=== PATIENT | female | born 1940 | race Caucasian/White ===

== ENCOUNTER 2016-06-21 23:04 | Inpatient (IN) | payer OTHER, MEDICARE ==
[~2016-06-21] VITALS: Ht 162.6 cm; Wt 51.7 kg
--- NOTE | 2016-06-21 23:13 | ED MVC/FALL/TRAUMA COMPLAINT ---
History of Present Illness General Chief Complaint: Lower Extremity Injury Stated Complaint: S/P FALL, ANTERIOR THIGH AND ANKLE AREA PAIN Source: patient, EMS Exam Limitations: dementia, poor historian Vital Signs & Intake/Output Vital Signs & Intake/Output Vital Signs Date Time Temp Pulse Resp B/P Pulse O2 O2 Flow FiO2 Ox Delivery Rate 06/24 2248 99.9 86 20 112/58 99 Room Air 06/24 1600 Nasal 2.0L Cannula 06/24 1501 98.2 85 19 140/80 96 06/24 1051 85 138/68 06/24 1050 85 138/68 06/24 0655 98.8 86 18 144/70 96 Nasal Cannula ED Intake and Output 06/25 0000 06/24 1200 Intake Total 500 100 Output Total 320 150 Balance 180 -50 Intake, Oral 500 100 Number 0 Bowel Movements Output, Urine 320 150 Patient 114 lb Weight Allergies Coded Allergies: lisinopril (Mild, UNKNOWN 06/21/16) Reconcile Medications Alendronate Sodium 70 MG TABLET 70 MG PO QW BONE STRENGTH (Reported) Amlodipine Besylate 10 MG TABLET 10 MG PO DAILY HIGH BLOOD PRESSURE (Reported ) Donepezil HCl 5 MG TABLET 5 MG PO DAILY DEPRESSION (Reported) Escitalopram Oxalate (Lexapro) 10 MG TABLET 15 MG PO DAILY DEPRESSION ( Reported) Famotidine (Pepcid) 20 MG TABLET 20 MG PO DAILY STOMACH HEALTH (Reported) Fluticasone/Salmeterol (Advair 250-50 Diskus) 250 MCG-50 MCG/DOSE BLST.W.DEV 2 PUF INH BID SHORTNESS OF BREATH (Reported) Levetiracetam (Keppra) 500 MG TABLET 500 MG PO BID SEIZURES (Reported) Metoprolol Tartrate 25 MG TABLET 12.5 MG PO BID HIGH BLOOD PRESSURE (Reported ) Phenytoin (Dilantin) 100 MG CAPSULE 130 MG PO AT BEDTIME SEIZURES (Reported) Phenytoin (Dilantin) 100 MG CAPSULE 1 CAP PO DAILY SEIZURES (Reported) Polyethylene Glycol 3350 (Miralax) 17 GRAM POWD.PACK 1 PAC PO DAILY PRN CONSTIPATION (Reported) dissolve in water Sennosides (Senna) 8.6 MG TABLET 8.6 MG PO DAILY STOOL SOFTENER (Reported) Travoprost (Travatan Z) 0.004 % DROPS 1 DROP OU DAILY EYE PROBLEMS (Reported) Trazodone HCl 50 MG TABLET 0.5 TAB PO Q6P PRN AGITATION (Reported) Umeclidinium [place] (Incruse Ellipta) 62.5 MCG/ACTUATION BLST.W.DEV 1 PUFF INH DAILY LUNG (Reported) Triage Nurses Notes Reviewed? yes HPI: Patient is a 75-year-old female brought in by ambulance for evaluation of fall. Patient resides in a senior care facility, was in the hallway and fell in front of the nursing station. EMS was not able to say if the fall was witnessed or not. Patient is severely demented, is unable to provide any history. Patient does not remember falling, being on the floor, or EMS transporting her to the hospital. Patient reports pain is 0 out of 10 right now. When asked to move her right lower extremity patient reports that it is painful. Patient denies headache, chest pain, abdominal pain, neck pain, back pain. (IBAN PETERSON) Past History Travel History Traveled to Thu past 21 day No Medical History Any Pertinent Medical History? see below for history Neurological: dementia, epilepsy Cardiovascular: hypertension Respiratory: COPD Surgical History Surgical History: non-contributory Psychosocial History Tobacco Use: Cognitive Impairment Family History Hx Contributory? No (IBAN PETERSON) Review of Systems Review of Systems Constitutional: Reports: no symptoms. Eyes: Denies: blurred vision. Ears, Nose, Throat, Mouth: Reports: no symptoms. Respiratory: Reports: no symptoms. Cardiovascular: Reports: no symptoms. Gastrointestinal/Abdominal: Reports: no symptoms. Genitourinary: Reports: no symptoms. Musculoskeletal: Reports: see HPI. Skin: Reports: no symptoms. Neurological/Psychological: Reports: dementia. (IBAN PETERSON) Physical Exam Physical Exam General Appearance: alert, awake Head: atraumatic, normal appearance Eyes: Bilateral: normal appearance, PERRL, EOMI. Ears, Nose, Throat, Mouth: hearing grossly normal, moist mucous membrane Neck: normal inspection, supple, full range of motion, no midline tenderness Respiratory: normal breath sounds, no respiratory distress, lungs clear Cardiovascular: regular rate/rhythm Peripheral Pulses: 2+ dorsalis pedis (R), 2+ dorsalis pedis (L) Gastrointestinal: soft, non-tender Back: normal inspection, normal range of motion, no vertebral tenderness Extremities: right lower extremity shortened and rotated. Tenderness right lateral hip. Severe pain with attempt at hip flexion both passive and active. Neurologic/Psych: awake, alert, disoriented to place and time Skin: warm/dry Core Measures ACS in differential dx? No Severe Sepsis Present: No Septic Shock Present: No (ZULEYMA HURLEY,IBAN) Progress Differential Diagnosis: aoritic dissection, abd injury, C/T/L spine injury, ext injury, ICH, pelvis injury, pnemothorax, spinal cord injury Plan of Care: Orders Procedure Date/time Status PROTHROMBIN TIME 06/25 06 Active CBC WITHOUT DIFFERENTIAL 06/25 06 Active BASIC ELECTROLYTES PLUS BUN&CR 06/25 06 Active URINALYSIS 06/24 1110 Complete Therapeutic Activities 06/24 UNK Complete PT EVAL LOW COMPLEX 20 MIN 06/24 UNK Complete Neuromuscular Re-ed 06/24 UNK Complete House Staff 06/24 UNK Active Anticipated Discharge 06/24 UNK Active MISSING MEDICATION FORM 06/24 UNK Active OXYGEN 06/23 UNK Complete OXYGEN DAILY CHARGE 06/23 UNK Complete Current Medications Sig/Marquis Start time Last Medication Dose Stop Time Status Admin Alendronate Sodium 70 MG QTHURS 06/25 1000 AC (Fosamax) Pantoprazole Sodium 40 MG DAILY 06/25 1000 AC (Protonix) Warfarin Sodium 2 MG COUMADIN 1700 ONE 06/24 1700 CAN (Coumadin) 06/24 1701 Acetaminophen 650 MG Q6P PRN 06/22 0200 AC (Tylenol) Laboratory Tests 06/24/16 1140: Urinalysis LIGHT H, Urine Color YEL, Urine Clarity CLEAR, Urine pH 6.0, Ur Specific [place] 1.025, Urine Protein 30 H, Urine Ketones 15 H, Urine Nitrite NEG, Urine Bilirubin NEG, Urine Urobilinogen 0.2, Ur Leukocyte Esterase NEG, Ur Microscopic SEDIMENT EXAMINED, Urine RBC 3-5, Urine WBC 5-10 H, Ur Epithelial Cells FEW, Urine Bacteria RARE H, Urine Mucus FEW, Urine Hemoglobin TRACE- INTACT, Urine Glucose NEG 06/24/16 0730: PT 33.2 H, INR 3.20 H 06/24/16 0700: Anion Gap 6, Estimated GFR > 60, BUN/Creatinine Ratio 20.0, CBC w Diff NO MAN DIFF REQ, RBC 3.48 L, MCV 92.8, MCH 30.1, RDW 13.6, MPV 9.4, Gran % 72.0, Lymphocytes % 15.8 L, Monocytes % 9.3, Eosinophils % 2.4, Basophils % 0.5, Absolute Granulocytes 7.8 H, Absolute Lymphocytes 1.7, Absolute Monocytes 1.0 H, Absolute Eosinophils 0.3, Absolute Basophils 0, PUBS MCHC 32.5 L Microbiology 06/24 1110 URINE ROUT: Urine Culture - CAN Cancelled: Cancelled via OE: Per MD Decision Patient declined pain medication on initial exam. 2354: Discussed with patient's niece Giovany and nephew Toñito Pappas. Orthopedics paged. 06/22/2016 12:22:35 AM: Discussed with Dr. Medina, Surgical PA Tejal. Discussed with Dr. Fox: will admit patient. (ZULEYMA HURLEY,IBAN) Diagnostic Imaging: Viewed by Me: Radiology Read, CT Scan. Discussed w/RAD: Radiology Read, CT Scan. Radiology Impression: PATIENT: REBECCA CARDENAS PRESENT AGE: 75 PATIENT ACCOUNT NO: [id number] : 39 LOCATION: [facility] ORDERING PHYSICIAN: IBAN HURLEY SERVICE DATE: 06/21/16 EXAM TYPE: RAD - XRY-HIP 2-3 VIEWS, RIGHT EXAMINATION: XR HIP, RIGHT CLINICAL INFORMATION: Fall. Right hip tenderness. Foreshortening right lower extremity. COMPARISON: No relevant prior imaging available. TECHNIQUE: Two views of the right hip. FINDINGS: There is an acute comminuted intertrochanteric fracture of the right hip with slight varus and posterior angulation at the site of the fracture. Chronic appearing fractures of the right superior and inferior pubic rami are also noted. Heavily calcified atheromatous plaque involves the visualized portions of the abdominal aorta and iliac vessels. Bowel gas pattern is unremarkable. IMPRESSION: There is an acute comminuted intertrochanteric fracture of the right hip with slight varus and posterior angulation at the site of fracture. DICTATED BY: ALEX YOUNG MD DATE/TIME DICTATED:06/22/1616 MIDDLEWARE ENGINEER:CHRISTIANA DATE/TIME TRANSCRIBED:06/22/1616 CONFIDENTIAL, DO NOT COPY WITHOUT APPROPRIATE AUTHORIZATION. <Electronically signed in Other Vendor System> SIGNED BY: ALEX YOUNG MD 06/22/16 0022, PATIENT: REBECCA CARDENAS PRESENT AGE: 75 PATIENT ACCOUNT NO: [id number] : 39 LOCATION: [facility] ORDERING PHYSICIAN: IBAN HURLEY SERVICE DATE: 06/21/16 EXAM TYPE: CAT - CT HEAD WO IV CONTRAST EXAMINATION: CT HEAD WITHOUT CONTRAST CLINICAL INFORMATION: Fall. Dementia. Evaluate for intracranial hemorrhage. COMPARISON: No relevant prior imaging available. TECHNIQUE: Contiguous axial imaging was performed from the skull base to vertex without intravenous administration of contrast. 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 Humphreys-white matter differentiation is otherwise preserved and there is no evidence of acute territorial infarct. There is no acute intracranial hemorrhage or abnormal extra axial collection. No intracranial mass effect or midline shift. Lateral and third ventricles are prominent and there is proportionate prominence of the subarachnoid spaces reflecting a mild degree of global parenchymal line loss. The calvarium and skull base are intact. Mastoid air cells and middle ear cavities are well aerated. Paranasal sinuses are well- aerated. 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 Mild global parenchymal loss. No evidence of acute cranial hemorrhage. DICTATED BY: ALEX YOUNG MD DATE/TIME DICTATED:2346 MIDDLEWARE ENGINEER:CHRISTIANA DATE/TIME TRANSCRIBED:06/21/162346 CONFIDENTIAL, DO NOT COPY WITHOUT APPROPRIATE AUTHORIZATION. <Electronically signed in Other Vendor System> SIGNED BY: ALEX YOUNG MD 06/21/16 8706 CXR Impression: PATIENT: REBECCA CARDENAS PRESENT AGE : 75 PATIENT ACCOUNT NO: [id number] : 39 LOCATION: [facility] ORDERING PHYSICIAN: IBAN HURLEY SERVICE DATE: 06/21/16 EXAM TYPE: RAD - XRY-CHEST XRAY, ONE VIEW ONLY EXAMINATION:\H\ \N\XR CHEST CLINICAL INFORMATION: Unwitnessed fall. COMPARISON: No relevant prior imaging available. TECHNIQUE: Semiupright AP view of the chest was obtained. FINDINGS: There are coarse reticular markings involving both lungs that most likely represent a manifestation of subsegmental atelectasis or scar. An ill-defined opacity within the right lower lobe may represent a manifestation of consolidative disease or subsegmental atelectasis. There is no pleural effusion. No pneumothorax. The cardiac silhouette and upper mediastinal contours are unremarkable. No acute osseous finding. IMPRESSION: Ill-defined opacity within the right lower lobe may represent a manifestation of subsegmental atelectasis or consolidative disease. DICTATED BY: ALEX YOUNG MD DATE/TIME DICTATED:06/22/1621 MIDDLEWARE ENGINEER:CHRISTIANA DATE/TIME TRANSCRIBED:06/22/1621 CONFIDENTIAL, DO NOT COPY WITHOUT APPROPRIATE AUTHORIZATION. <Electronically signed in Other Vendor System> SIGNED BY: ALEX YOUNG MD 06/22/1625 Initial ED EKG: normal sinus rhythm at 79 bpm normal axis, normal intervals, nonspecific ST/T-wave abnormalities. No previous EKG for comparison (IBAN PETERSON) Departure Departure Disposition: STILL A PATIENT Condition: Stable Clinical Impression Primary Impression: Fracture of right hip Qualifiers: Encounter type: initial encounter Fracture type: closed Qualified Code: S72.001A - Fracture of unspecified part of neck of right femur, initial encounter for closed fracture Departure Forms: Customer Survey General Discharge Information Admission Note Spoke With: KRISTY FOX MD Documentation of Exam: Documentation of any treatments & extenuating circumstances including Concerns Regarding Discharge (functional status, medication knowledge or non-compliance, living conditions, etc.) that warrant an admission rather than observation: ORTHO CONSULTATION, MEDICAL CLEARANCE, OR INTERVENTION (IBAN PETERSON) PA/FACULTY I ON CALL MEDICAL ASSISTANT Co-Sign Statement Statement: ED Attending supervision documentation- [] I saw and evaluated the patient. I have also reviewed all the pertinent lab results and diagnostic results. I agree with the findings and the plan of care as documented in the PA's/FACULTY I ON CALL MEDICAL ASSISTANT's documentation. [x] I have reviewed the ED Record and agree with the PA's/FACULTY I ON CALL MEDICAL ASSISTANT's documentation. [] Additions or exceptions (if any) to the PAs/FACULTY I ON CALL MEDICAL ASSISTANT's note and plan are summarized below: [] (AJ RUSSELL,MAGI Olguin) (IBAN PETERSON) Diagnostic Imaging: Viewed by Me: Radiology Read, CT Scan. Discussed w/RAD: Radiology Read, CT Scan. Radiology Impression: PATIENT: REBECCA CARDENAS PRESENT AGE: 75 PATIENT ACCOUNT NO: [id number] : 39 LOCATION: [facility] ORDERING PHYSICIAN: IBAN HURLEY SERVICE DATE: 06/21/16 EXAM TYPE: RAD - XRY-HIP 2-3 VIEWS, RIGHT EXAMINATION: XR HIP, RIGHT CLINICAL INFORMATION: Fall. Right hip tenderness. Foreshortening right lower extremity. COMPARISON: No relevant prior imaging available. TECHNIQUE: Two views of the right hip. FINDINGS: There is an acute comminuted intertrochanteric fracture of the right hip with slight varus and posterior angulation at the site of the fracture. Chronic appearing fractures of the right superior and inferior pubic rami are also noted. Heavily calcified atheromatous plaque involves the visualized portions of the abdominal aorta and iliac vessels. Bowel gas pattern is unremarkable. IMPRESSION: There is an acute comminuted intertrochanteric fracture of the right hip with slight varus and posterior angulation at the site of fracture. DICTATED BY: ALEX YOUNG MD DATE/TIME DICTATED:06/22/1616 MIDDLEWARE ENGINEER:CHRISTIANA DATE/TIME TRANSCRIBED:06/22/1616 CONFIDENTIAL, DO NOT COPY WITHOUT APPROPRIATE AUTHORIZATION. <Electronically signed in Other Vendor System> SIGNED BY: ALEX YOUNG MD 06/22/16 0022, PATIENT: REBECCA CARDENAS PRESENT AGE: 75 PATIENT ACCOUNT NO: [id number] : 39 LOCATION: [facility] ORDERING PHYSICIAN: IBAN HURLEY SERVICE DATE: 06/21/16 EXAM TYPE: CAT - CT HEAD WO IV CONTRAST EXAMINATION: CT HEAD WITHOUT CONTRAST CLINICAL INFORMATION: Fall. Dementia. Evaluate for intracranial hemorrhage. COMPARISON: No relevant prior imaging available. TECHNIQUE: Contiguous axial imaging was performed from the skull base to vertex without intravenous administration of contrast. 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 Humphreys-white matter differentiation is otherwise preserved and there is no evidence of acute territorial infarct. There is no acute intracranial hemorrhage or abnormal extra axial collection. No intracranial mass effect or midline shift. Lateral and third ventricles are prominent and there is proportionate prominence of the subarachnoid spaces reflecting a mild degree of global parenchymal line loss. The calvarium and skull base are intact. Mastoid air cells and middle ear cavities are well aerated. Paranasal sinuses are well- aerated. 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 Mild global parenchymal loss. No evidence of acute cranial hemorrhage. DICTATED BY: ALEX YOUNG MD DATE/TIME DICTATED:2346 MIDDLEWARE ENGINEER:CHRISTIANA DATE/TIME TRANSCRIBED:06/21/162346 CONFIDENTIAL, DO NOT COPY WITHOUT APPROPRIATE AUTHORIZATION. <Electronically signed in Other Vendor System> SIGNED BY: ALEX YOUNG MD 06/21/162351 CXR Impression: PATIENT: REBECCA CARDENAS PRESENT AGE : 75 PATIENT ACCOUNT NO: [id number] : 39 LOCATION: [facility] ORDERING PHYSICIAN: IBAN HURLEY SERVICE DATE: 06/21/16 EXAM TYPE: RAD - XRY-CHEST XRAY, ONE VIEW ONLY EXAMINATION:\H\ \N\XR CHEST CLINICAL INFORMATION: Unwitnessed fall. COMPARISON: No relevant prior imaging available. TECHNIQUE: Semiupright AP view of the chest was obtained. FINDINGS: There are coarse reticular markings involving both lungs that most likely represent a manifestation of subsegmental atelectasis or scar. An ill-defined opacity within the right lower lobe may represent a manifestation of consolidative disease or subsegmental atelectasis. There is no pleural effusion. No pneumothorax. The cardiac silhouette and upper mediastinal contours are unremarkable. No acute osseous finding. IMPRESSION: Ill-defined opacity within the right lower lobe may represent a manifestation of subsegmental atelectasis or consolidative disease. DICTATED BY: ALEX YOUNG MD DATE/TIME DICTATED:06/22/1621 MIDDLEWARE ENGINEER:BANGURA DATE/TIME TRANSCRIBED:06/22/1621 CONFIDENTIAL, DO NOT COPY WITHOUT APPROPRIATE AUTHORIZATION. <Electronically signed in Other Vendor System> SIGNED BY: ALEX YOUNG MD 06/22/16 0026 Initial ED EKG: normal sinus rhythm at 79 bpm normal axis, normal intervals, nonspecific ST/T-wave abnormalities. No previous EKG for comparison Departure Departure Disposition: STILL A PATIENT Condition: Stable Clinical Impression Primary Impression: Fracture of right hip Qualifiers: Encounter type: initial encounter Fracture type: closed Qualified Code: S72.001A - Fracture of unspecified part of neck of right femur, initial encounter for closed fracture Departure Forms: Customer Survey General Discharge Information Admission Note Spoke With: KRISTY FOX MD Documentation of Exam: Documentation of any treatments & extenuating circumstances including Concerns Regarding Discharge (functional status, medication knowledge or non-compliance, living conditions, etc.) that warrant an admission rather than observation: ORTHO CONSULTATION, MEDICAL CLEARANCE, OR INTERVENTION
--- NOTE | 2016-06-21 23:20 | NUR ---
RECEIVED 75 YO FEMALE BIBA FROM [facility] S/P FALL IN FRONT OF THE NURSES STATION. PT C/O ANTERIOR THIGH AREA PAIN AND ANKLE AREA PAIN. ACCORDING TO REPORT, PT DID NOT HIT HEAD. RIGHT LEG SHORTER THAN THE LEFT LEG. NATE HURLEY IN TO EVALUATE PT UPON ARRIVAL.
--- NOTE | 2016-06-21 23:28 | NUR ---
PT TO CT SCAN
--- NOTE | 2016-06-21 23:52 | CT SCAN REPORT ---
EXAMINATION: CT HEAD WITHOUT CONTRAST CLINICAL INFORMATION: Fall. Dementia. Evaluate for intracranial hemorrhage. COMPARISON: No relevant prior imaging available. TECHNIQUE: Contiguous axial imaging was performed from the skull base to vertex without intravenous administration of contrast. 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 Humphreys-white matter differentiation is otherwise preserved and there is no evidence of acute territorial infarct. There is no acute intracranial hemorrhage or abnormal extra axial collection. No intracranial mass effect or midline shift. Lateral and third ventricles are prominent and there is proportionate prominence of the subarachnoid spaces reflecting a mild degree of global parenchymal line loss. The calvarium and skull base are intact. Mastoid air cells and middle ear cavities are well aerated. Paranasal sinuses are well-aerated. 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 Mild global parenchymal loss. No evidence of acute cranial hemorrhage.
--- NOTE | 2016-06-22 00:22 | RADIOLOGY REPORT ---
EXAMINATION: XR HIP, RIGHT CLINICAL INFORMATION: Fall. Right hip tenderness. Foreshortening right lower extremity. COMPARISON: No relevant prior imaging available. TECHNIQUE: Two views of the right hip. FINDINGS: There is an acute comminuted intertrochanteric fracture of the right hip with slight varus and posterior angulation at the site of the fracture. Chronic appearing fractures of the right superior and inferior pubic rami are also noted. Heavily calcified atheromatous plaque involves the visualized portions of the abdominal aorta and iliac vessels. Bowel gas pattern is unremarkable. IMPRESSION: There is an acute comminuted intertrochanteric fracture of the right hip with slight varus and posterior angulation at the site of fracture.
--- NOTE | 2016-06-22 00:22 | NUR ---
EKG DONE AND SHOWN TO DR. ROCHA, AND NATE HURLEY.
--- NOTE | 2016-06-22 00:26 | RADIOLOGY REPORT ---
EXAMINATION:\H\ \N\XR CHEST CLINICAL INFORMATION: Unwitnessed fall. COMPARISON: No relevant prior imaging available. TECHNIQUE: Semiupright AP view of the chest was obtained. FINDINGS: There are coarse reticular markings involving both lungs that most likely represent a manifestation of subsegmental atelectasis or scar. An ill-defined opacity within the right lower lobe may represent a manifestation of consolidative disease or subsegmental atelectasis. There is no pleural effusion. No pneumothorax. The cardiac silhouette and upper mediastinal contours are unremarkable. No acute osseous finding. IMPRESSION: Ill-defined opacity within the right lower lobe may represent a manifestation of subsegmental atelectasis or consolidative disease.
--- NOTE | 2016-06-22 00:30 | NUR ---
PT CONFUSED. PT STATES THAT SHE DOESNT KNOW WHY SHE IS HERE. PT DENIES FALLING. WHEN PT TOLD WHAT HAPPENED PT STATES "YOU MUST HAVE THE WRONG PERSON, I DIDNT FALL. I DIDNT BREAK ANYTHING," PT WANTING TO GO OUTSIDE AND SMOKE. PT ASKING WHAT HAPPENED, WHERE IS SHE REPEATEDLY.
--- NOTE | 2016-06-22 00:46 | NUR ---
SURGICAL PA AT BEDSIDE
[2016-06-22] MEDS ORDERED: DILANTIN100 M1 PO ×2 (00:52→02:10)
[2016-06-22] MEDS ORDERED: KEPPRA500 M1 PO (00:53)
[2016-06-22] MEDS ORDERED: LEXAPRO5 M1 PO (00:55)
[2016-06-22] MEDS ORDERED: LEXAPRO10 M1 PO (00:55)
[2016-06-22] MEDS ORDERED: METOPROLOL TART25 M1 PO (00:57)
[2016-06-22] MEDS ORDERED: AMLODIPINE BESY10 M1 PO (00:59)
[2016-06-22] MEDS ORDERED: PEPCID20 M1 PO (00:59)
[2016-06-22] MEDS ORDERED: ALENDRONATE SOD70 M2 PO (01:01)
--- NOTE | 2016-06-22 01:02 | NUR ---
IV EST #24 LEFT WRIST, WRAPPED W/ COBAN FOR PROTECTION. BLOODWORK OBTAINED AND SENT TO LAB (LAV, SST, BLUE, [facility]O, PINK). EVALUATED BY MD MONTERROSO AND SURGICAL MEI LIM.
[2016-06-22] MEDS ORDERED: DONEPEZIL HCL5 MG PO (01:12)
[2016-06-22] MEDS ORDERED: SENNA8.6 M3 PO (01:13)
[2016-06-22] MEDS ORDERED: TRAVATAN Z5 ML OU (01:14)
[2016-06-22] MEDS ORDERED: ADVAIR 250-501 EACH INH ×2 (01:16→02:14)
[2016-06-22 01:18] LABS: ABSOLUTE BASOPHIL COUNT 0 /CUMM (0.0-0.2); ABSOLUTE EOSINOPHIL COUNT 0.2 /CUMM (0.0-0.7); ABSOLUTE GRANULOCYTE CT 7.8 /CUMM (1.4-6.5); ABSOLUTE MONOCYTE COUNT 0.5 /CUMM (0.10-0.60); BASOPHIL % 0.1 % (0.0-2.0); EOSINOPHIL % 1.8 % (0-5); GRANULOCYTE % 82.9 % (42.2-75.2); HEMATOCRIT 35.4 % (37-47); MEAN CORPUSCULAR HGB 30.4 PG (27.0-31.0); MEAN PLATELET VOLUME 9.7 FL (7.4-10.4); PLATELET COUNT 196 /CUMM (130-400); RBC DISTRIBUTION WIDTH 13.8 % (11.5-14.5); RED BLOOD CELL CT 3.85 /CUMM (4.20-5.40); WHITE BLOOD CELL COUNT 9.4 /CUMM (4.8-10.8)
--- NOTE | 2016-06-22 01:32 | Cons- Orthopedic ---
General Information and HPI Consulting Request Date of Consult: 06/22/16 Requested By: Hospitalist Reason for Consult: Right hip fracture Source of Information: W10 Exam Limitations: unable to give history, confusion, dementia History of Present Illness: Pt is a 75 yo F resident at [facility], with a pmh significant for HTN, COPD , Epilepsy, hypothyroidism, osteoporosis, dementia, and depression who was BIBA from her ECF after reports of a fall with subsequent complaints of "the worst pain ever" in her R hip (per W10). Pt does not recall the event and it is unclear if it was a witnessed event. She denies pain at this time, except during blood draw. Workup in the ED revealed a R hip fracture. Pt states that she ambulates independently at baseline without the use of assistive devices. She is requiring frequent re-orientation of situation due to short term memory loss. Allergies/Medications Allergies: Coded Allergies: lisinopril (Mild, UNKNOWN 06/21/16) Home Med List: Alendronate Sodium 70 MG TABLET 70 MG PO BOWEL HEALTH (Reported) Amlodipine Besylate 10 MG TABLET 10 MG PO DAILY HIGH BLOOD PRESSURE (Reported ) Donepezil HCl 5 MG TABLET 5 MG PO DAILY DEPRESSION (Reported) Escitalopram Oxalate (Lexapro) 5 MG TABLET 5 MG PO DAILY DEPRESSION (Reported ) Escitalopram Oxalate (Lexapro) 10 MG TABLET 10 MG PO DAILY DEPRESSION ( Reported) Famotidine (Pepcid) 20 MG TABLET 20 MG PO DAILY STOMACH HEALTH (Reported) Fluticasone/Salmeterol (Advair 250-50 Diskus) 250 MCG-50 MCG/DOSE BLST.W.DEV 1 PUF INH BID SHORTNESS OF BREATH (Reported) Levetiracetam (Keppra) 500 MG TABLET 500 MG PO BID SEIZURES (Reported) Metoprolol Tartrate 25 MG TABLET 12.5 MG PO BID HIGH BLOOD PRESSURE (Reported ) Phenytoin (Dilantin) 100 MG CAPSULE 130 MG PO DAILY SEIZURES (Reported) Sennosides (Senna) 8.6 MG TABLET 8.6 MG PO DAILY STOOL SOFTENER (Reported) Travoprost (Travatan Z) 0.004 % DROPS 1 DROP OU DAILY EYE PROBLEMS (Reported) Current Medications: Current Medications Sig/Marquis Start time Last Medication Dose Route Stop Time Status Admin Morphine Sulfate 2 MG ONCE ONE 06/21 2329 DC IV 03/26 2331 Past History Medical History Neurological: dementia, seizure Cardiovascular: hypertension Respiratory: COPD Musculoskeletal: osteoporosis Psychiatric: depression Endocrine: hypothyroidism Surgical History Pertinent Surgical History: unobtainable Psychosocial History Where Do You Live? Extended Care Facility Smoking Status: Current Everyday Smoker (1 pack every 3 days) ETOH Use: denies use Review of Systems Review of Systems: ROS is unobtainable due to pt's baseline dementia. Exam & Diagnostic Data Vital Signs and I&O Vital Signs Date Time Temp Pulse Resp B/P Pulse O2 O2 Flow FiO2 Ox Delivery Rate 06/21 2308 97.7 79 18 175/77 97 Nasal 2.0L Cannula Intake & Output 06/22 0800 06/22 0000 06/21 1600 06/21 0800 06/21 0000 06/20 1600 Intake Total Output Total Balance Patient 99 lb 15.99 oz Weight Physical Exam: General: Pt a thin, elderly female. She is awake and alert. She verbalizes clearly and is oriented to person, but not to time, place, or situation, despite multiple attempts at reorientation. Ext: The right lower extremity is shortened and externally rotated. There is prominence of the R greater trochanter, but no tenderness. Leg is cool. DP pulse is palpable. Skin is dry. Last 24 Hours of Labs: Laboratory Tests 06/22 0100 Chemistry Sodium Pending Potassium Pending Chloride Pending Carbon Dioxide Pending Anion Gap Pending BUN Pending Creatinine Pending BUN/Creatinine Ratio Pending Glucose Pending Calcium Pending Total Bilirubin Pending AST Pending ALT Pending Alkaline Phosphatase Pending Troponin I Pending Total Protein Pending Albumin Pending Globulin Pending Albumin/Globulin Ratio Pending Coagulation PT Pending INR Pending Hematology CBC w Diff Pending WBC Pending RBC Pending Hgb Pending Hct Pending MCV Pending MCH Pending RDW Pending Plt Count Pending MPV Pending PUBS MCHC Pending Toxicology Phenytoin Pending Imaging Results: Hip X-ray: There is an acute comminuted intertrochanteric fracture of the right hip with slight varus and posterior angulation at the site of fracture. 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 Mild global parenchymal loss. No evidence of acute cranial hemorrhage. CXR: Ill-defined opacity within the right lower lobe may represent a manifestation of subsegmental atelectasis or consolidative disease. Assessment/Plan Assessment/Plan Pt is a 75 yo F with multiple medical co-morbidities who sustained a R intertroch hip fracture due to a reported fall at her ECF. Plan: -Pt will be admitted to medicine for clearance and management of medical comorbidities. -Consent will need to be obtained from pt's POA for surgical intervention. -Please keep pt npo. -Pain control if needed, but would avoid narcotics if possible. -F/u labs. -Dr. Medina is aware of pt's admission. Consult Acknowledgment - Thank you for your consult request.
--- NOTE | 2016-06-22 01:53 | History & Physical ---
KIMBERLY WALTON MD 06/22/16 0152: General Information and HPI MD Statement: I have seen and personally examined REBECCA CARDENAS and documented this H&P. The patient is a 75 year old F who presented with a patient stated chief complaint of fall with leg pain. Source of Information: W10 Exam Limitations: unable to give history, confusion, dementia History of Present Illness: Ms. Cardenas is a 75 year old female with PMH epilepsy/simple partial seizures, osteoporosis, hypothyroidism, unspecified dementia without behavioral disturbances, major depressive disorder, essential hypertension, COPD on 2 L nasal cannula continuously and muscle weakness who was transferred to [facility] from [facility] due to mechanical fall resulting in right hip and leg pain. Patient has a history of dementia and is unable to provide any history; specifically she denies falling and does not believe she has a hip fracture. Thus, history is obtained from W10. As per W10, patient was at the nursing facility today and fell while ambulating in the hallway. At that time, she reported pain in her right hip and right thigh that was described as the "worst pain". Currently, patient denies right hip/leg pain as well as headache, chest pain, shortness of breath or any other pain. Social history is unable to be obtained at this time, though it is reported that patient is an active, daily smoker. W10 has no mention of prior surgical history. Patient is noted to be wheel chair bound and is an assist of 1. She tolerates a regular diet. W10 reports code status as FULL. Person to contact is Toñito Little at [phone]. Both him and his sister are the POA. Allergies/Medications Allergies: Coded Allergies: lisinopril (Mild, UNKNOWN 06/21/16) Home Med list Alendronate Sodium 70 MG TABLET 70 MG PO BOWEL HEALTH (Reported) Amlodipine Besylate 10 MG TABLET 10 MG PO DAILY HIGH BLOOD PRESSURE (Reported ) Donepezil HCl 5 MG TABLET 5 MG PO DAILY DEPRESSION (Reported) Escitalopram Oxalate (Lexapro) 5 MG TABLET 5 MG PO AT BEDTIME DEPRESSION ( Reported) Escitalopram Oxalate (Lexapro) 10 MG TABLET 10 MG PO DAILY DEPRESSION ( Reported) Famotidine (Pepcid) 20 MG TABLET 20 MG PO DAILY STOMACH HEALTH (Reported) Fluticasone/Salmeterol (Advair 250-50 Diskus) 250 MCG-50 MCG/DOSE BLST.W.DEV 1 PUF INH BID LUNG (Reported) Fluticasone/Salmeterol (Advair 250-50 Diskus) 250 MCG-50 MCG/DOSE BLST.W.DEV 1 PUF INH BID SHORTNESS OF BREATH (Reported) Levetiracetam (Keppra) 500 MG TABLET 500 MG PO BID SEIZURES (Reported) Metoprolol Tartrate 25 MG TABLET 12.5 MG PO BID HIGH BLOOD PRESSURE (Reported ) Phenytoin (Dilantin) 100 MG CAPSULE 130 MG PO AT BEDTIME SEIZURES (Reported) Phenytoin (Dilantin) 100 MG CAPSULE 1 CAP PO DAILY SEIZURES (Reported) Polyethylene Glycol 3350 (Miralax) 17 GRAM POWD.PACK 1 PAC PO DAILY PRN CONSTIPATION (Reported) dissolve in water Sennosides (Senna) 8.6 MG TABLET 8.6 MG PO DAILY STOOL SOFTENER (Reported) Travoprost (Travatan Z) 0.004 % DROPS 1 DROP OU DAILY EYE PROBLEMS (Reported) Trazodone HCl 50 MG TABLET 0.5 TAB PO Q6P PRN AGITATION (Reported) Umeclidinium Hammond (Incruse Ellipta) 62.5 MCG/ACTUATION BLST.W.DEV 1 PUFF INH DAILY LUNG (Reported) Compliance With Home Meds: UNKNOWN Past History Travel History Traveled to [place] past 21 day No Medical History Neurological: dementia, seizure Cardiovascular: hypertension Respiratory: COPD Musculoskeletal: osteoporosis Psychiatric: depression Endocrine: hypothyroidism Surgical History Surgical History: unobtainable Past Family/Social History Psychosocial History Where do you live? Extended Care Facility Primary Language: Kyrgyz Smoking Status: Current Everyday Smoker (1 pack every 3 days) ETOH Use: denies use Illicit Drug Use: denies illicit drug use Functional Ability ADLs Needs Assist: dressing, eating, toileting, bathing. Ambulation: independent IADLs Needs Assist: shopping, housework, finances, food prep, telephone, transportation, medication admin. Sexual History Sexually Active No Review of Systems Review of Systems Constitutional: Reports: see HPI. Denies: chills, diaphoresis, fever. EENTM: Denies: visual changes, throat pain. Cardiovascular: Denies: chest pain, palpitations. Respiratory: Denies: cough, short of breath. GI: Denies: abdominal pain, nausea, vomiting. Genitourinary: Denies: dysuria. Musculoskeletal: Denies: joint pain, muscle pain. Exam & Diagnostic Data Last 24 Hrs of Vital Signs/I&O Vital Signs Date Time Temp Pulse Resp B/P Pulse O2 O2 Flow FiO2 Ox Delivery Rate 06/22 0100 97.0 70 18 168/74 95 Nasal 2.0L Cannula 06/21 2308 97.7 79 18 175/77 97 Nasal 2.0L Cannula Intake & Output 06/22 0800 06/22 0000 06/21 1600 Intake Total Output Total Balance Patient 99 lb 15.99 oz Weight Physical Exam General Appearance Alert, Cooperative, No Acute Distress, AAOx0., Thin. Skin No Significant Lesion HEENT Atraumatic, PERRLA, EOMI, Poor oral dentition with carries. Dry mucous membranes. Neck Supple, No JVD, +2 Carotid Pulse wo Bruit Lymphatic Cervical nl Cardiovascular Regular Rate, Normal S1, Normal S2, No Murmurs Lungs Clear to Auscultation, Normal Air Movement Abdomen Normal Bowel Sounds, Soft, No Tenderness Neurological Normal Speech, Normal Tone Extremities No Clubbing, No Cyanosis, No Edema, No Tenderness/Swelling, RLE externally rotated and slightly shorter than left. Vascular Pulses Symmetrical Last 24 Hrs of Labs/David: Laboratory Tests 06/22/16 0134: Sodium Pending, Potassium Pending, Chloride Pending, Carbon Dioxide Pending, Anion Gap Pending, BUN Pending, Creatinine Pending, BUN/Creatinine Ratio Pending , Glucose Pending, Calcium Pending, Total Bilirubin Pending, AST Pending, ALT Pending, Alkaline Phosphatase Pending, Troponin I Pending, Total Protein Pending , Albumin Pending, Globulin Pending, Albumin/Globulin Ratio Pending, PT 13.0 H, INR 1.24 H, Phenytoin Pending 06/22/16 010: CBC w Diff NO MAN DIFF REQ, RBC 3.85 L, MCV 92.0, MCH 30.4, RDW 13.8, MPV 9.7, Gran % 82.9 H, Lymphocytes % 10.4 L, Monocytes % 4.8, Eosinophils % 1.8, Basophils % 0.1, Absolute Granulocytes 7.8 H, Absolute Lymphocytes 1.0 L, Absolute Monocytes 0.5, Absolute Eosinophils 0.2, Absolute Basophils 0, PUBS MCHC 33.0 Microbiology 06/22 0013 URINE ROUT: Urine Culture - ORD Diagnostic Data EKG Results NSR HR 79 bpm, QTC 441. CXR Results Ill-defined opacity within the right lower lobe may represent a manifestation of subsegmental atelectasis or consolidative disease. 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 Mild global parenchymal loss. No evidence of acute cranial hemorrhage. Hip XRay: IMPRESSION: There is an acute comminuted intertrochanteric fracture of the right hip with slight varus and posterior angulation at the site of fracture. Assessment/Plan Assessment: Ms. Cardenas is a 75 year old female with PMH epilepsy/simple partial seizures, osteoporosis, hypothyroidism, unspecified dementia without behavioral disturbances, major depressive disorder, essential hypertension, COPD on 2 L nasal cannula continuously and muscle weakness who is evaluated status post mechanical fall resulting in right hip intertrochanteric fracture. Patient is currently hemodynamically stable without pain (0/10). She denies fever, chills, chest pain, shortness of breath, weakness, right hip/leg pain or inability to move extremities. In the ED: Vital signs showed T 97.6, HR 79, RR 18, BP 175/77, O2 saturation of 97% on 2 L NC. Labs were significant for WBC 9.4, normocytic anemia to 11.7/35.4 , Plt 196, K 3.1, Cl 95, HCO3 37, BUN 18, Glu 127, troponin<0.01 , INR 1.24, phenytoin 4.2. CXR showed ill-defined opacity within the right lower lobe that may represent a manifestation of subsegmental atelectasis or consolidative disease. 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 Mild global parenchymal loss. No evidence of acute cranial hemorrhage. Hip XRay was significant for an acute comminuted intertrochanteric fracture of the right hip with slight varus and posterior angulation at the site of fracture. EKG showed NSR HR 79, QTC 441. Patient is admitted to the general medicine floor and the following is the management: 1. Acute comminuted right hip intertrochanteric fracture * Patient currently hemodynamically stable with pain 0/10 * Pain control with PO tylenol for mild pain, IV tylenol for moderate pain and IV morphine for severe pain * Surgical consult appreciated, Dr. Winkler aware of admission * Possible OR procedure pending POA consent for surgical intervention * Will keep patient NPO while awaiting surgery * Matthews catheter * IVF with D5W-1/2 NS at 75 cc/h * RCRI 1 point representing class 2 risk, 0.9% risk of major cardiac events * 2D echo ordered for tomorrow * Repeat EKG in AM as baseline EKG shows erratic baseline 2. Hypokalemia * K 3.1 on admission without overt EKG changes * Klor 40 meq PO x 1 * Follow up repeat BEP in AM 3. History of epilepsy * Dilantin level noted to be low to 4.2 * Dilantin 130 mg PO at bedtime, Dilantin 100 mg PO daily * Keppra 500 mg PO BID 5. Dementia without behavioral disturbance * Donepezil and memantine on hold for now, consider restarting post-op * Continue trazodone for agitation 6. COPD * Patient currently at home O2 via NC (2 L) * Continue supplemental O2 as needed * Monitor respiratory status closely * TRC nebs * Incentive spirometry for atelectatic areas 7. Essential HTN * Vital signs Q shift * Continue amlodipine 10 mg PO daily and metoprolol 8. Major depressive disorder * Hold lexapro for now * Restart post-op FULL CODE DVTP: ALPS Diet: NPO Mild to severe pain pathway As Ranked By This Provider Problem List: 1. Fracture of right hip Qualifiers Encounter type: initial encounter Fracture type: closed Qualified Code: S72.001A - Fracture of unspecified part of neck of right femur, initial encounter for closed fracture 2. Essential hypertension 3. Epilepsy 4. Osteoporosis 5. Unspecified dementia without behavioral disturbance 6. Hypothyroidism 7. Major depressive disorder 8. COPD (chronic obstructive pulmonary disease) Core Measures/Miscellaneous Acute Coronary Syndrome ACS Diagnosis: No Cerebrovascular Accident CVA/TIA Diagnosis: No Congestive Heart Failure CHF Diagnosis: No Venous Thromboembolism VTE Risk Factors: Acute medical illness, Age > 40, Trauma major or lower ext No Mech VTE prophylaxis d/t: No contraindications No VTE Pharm Prophylaxis d/t: No contraindications VTE Diagnosis: No VTE Type: NONE VTE Confirmed by (Test): NONE Severe Sepsis Severe Sepsis Present: No Septic Shock Septic Shock Present: No Miscellaneous Documentation Attending Case Discussed With: Dr. Dominique MD Primary Care Physician: UNKNOWN Patient sees these Specialists Unknown. Level of Patient Care: General Medicine ILA RUSSELL,[facility] 06/22/16 0351: Resident Review Statement Resident Statement: examined this patient, discussed with video editing internship, agreed with video editing internship Other Findings: 75 y/o F with a PMH of epileptic syndrome with simple partial seizures, hypothyroidism, osteoporosis, unspecified dementia, major depressive disorder, essential hypertension, COPD, muscle weakness who presents to the ED after a fall at the [facility]. Patient was confused and unable to provide any history. There was no family or friends at bedside to do so either. According to the W 10,, she fell in front of the nurses station today after which she complained of the worst pain ever in her right hip. At the time of the interview, patient does not know why she is in the hospital. she does not November falling and does not complain of any pain either. She denies any chest pain, shortness of breath, pain anywhere else, urinary or bowel complaints. Vitals: 97.7/79/18/135/77/97% on 2 L Labs: H/H: 11.7/35.4 K: 3.1, Trops: INR: 1.24 Phenytoin level: 4.2 Physical exam: Not alert or oriented to time place and person. Mucous membranes moist. EOM preserved s1s2 heard, BCTA Abdomen: non tender Extremities: Rt leg shortened and externally rotated. Imaging: Xray Hip: There is an acute comminuted intertrochanteric fracture of the right hip with slight varus and posterior angulation at the site of fracture. Plan: * Admit to General Medicine * NPO for possible surgery in AM * Continue anti-hypertensives and anti-seizure medications for now. * RCRI shows a 0.9% risk of perioperative cardiac events. * DVT PPX: ALPS * Pain Pathway: Mild, moderate, severe * Code status: Full Code per W10 KRISTY FORREST 06/22/16 0709: Attending MD Review Statement Attending Statement Attending MD Statement: examined this patient, discuss w/resident/PA/GRANITE FABRICATOR, agreed w/resident/PA/GRANITE FABRICATOR, reviewed EMR data (avail), reviewed images, amended to note Attending Assessment/Plan: CC: FAll PMH: Epilepsy, osteoporosis, hypothyroidism, dementia, major depressive disorder , hypertension, COPD, chronic 2 L nasal cannula. Patient does not provide any history. She was sent from [facility] for fall. ? Details of fall unavailable. Vitals: Afebrile, pulse, RRR, blood pressure, O2 saturation within acceptable range, on 2 L NC, on examination: Alert, not oriented, inappropriate response, follows instructions, no focal neurological deficit, right lower extremity externally rotated shortened, neck supple, no JVD, no lymphadenopathy, no open wounds, cachectic, CVS: S1-S2, RRR. RS: Clear to auscultate bilaterally. Abdomen : Soft, NT, ND, bowel sounds present. No pedal edema. Labs: CBC unremarkable, potassium 3.1, bicarbonate 37, BUN 18, glucose 127, troponin T negative, LFT unremarkable. INR 1.24, phenytoin level 4.2. CXR: Ill-defined opacity within the right lower lobe may represent a manifestation of subsegmental atelectasis or consolidative disease. 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 Mild global parenchymal loss. No evidence of acute cranial hemorrhage. X-ray right hip: There is an acute comminuted intertrochanteric fracture of the right hip with slight varus and posterior angulation at the site of fracture. A and P #1 fall: No details are available, unclear etiology, right hip fracture, orthopedic is consulted. Patient has old infarcts on CT scan, no other cardiac history is available as patient is poor historian, repeat EKG in a.m., 2-D echocardiogram, calculated RCRI s/o 0.9% risk of major cardiac events. Plan discussed with POA. Pain control. Continue gentle hydration #2 continue her home medications for HTN, COPD, seizures, hold Lexapro, donepezil and Namenda, continue trazodone, continue bowel regimen, replace potassium.
--- NOTE | 2016-06-22 02:00 | NUR ---
HOUSE STAFF AT BEDSIDE
--- NOTE | 2016-06-22 02:06 | NUR ---
PT APPEARS TO BE RESTING COMFORTABLY. RESP UNLABORED. NO APPARENT DISTRESS.
[2016-06-22] MEDS ORDERED: MIRALAX17 G1 PO (02:12)
[2016-06-22] MEDS ORDERED: TRAZODONE HCL50 M1 PO (02:12)
[2016-06-22] MEDS ORDERED: INCRUSE ELLI62.5 MCG INH (02:14)
--- NOTE | 2016-06-22 02:25 | NUR ---
PABLO EST, APPROX 120ML DARK YELLOW URINE OUTPUT W/ INSERTION. SPECIMEN OBTAINED AND SENT TO LAB ([facility]).
--- NOTE | 2016-06-22 03:14 | NUR ---
PT BED ASSIGNMENT 235-1
--- NOTE | 2016-06-22 03:42 | NUR ---
REPORT CALLED TO FLOOR RN
--- NOTE | 2016-06-22 04:38 | NUR ---
PT AWAKE. RESP UNLABORED. SKIN WARM AND DRY. NO APPARENT DISTRESS
[2016-06-22 05:08] VITALS: BP 156/78
--- NOTE | 2016-06-22 07:11 | Admission Certification ---
Admission Certification Certification Statement - As attending physician, I certify that at the time of - admission, based on clinical presentation, severity of - symptoms, need for further diagnostic testing and - therapeutic interventions, and risk of adverse outcomes - without in-hospital treatment, in my clinical assessment, - this patient requires an acute hospital stay for a minimum - of two nights or longer. I have also considered psychsocial - factors such as support system, advanced age, financial - issues, cognitive issues, and failed out-patient treatments, - past re-admission history, safety of patient, and lack of - compliance as applicable. Specific rationale supporting this admission is: Fall, right hip fracture
--- NOTE | 2016-06-22 07:29 | PN- Orthopedic ---
Subjective Subjective: The patient was seen this morning. She appears confused, not knowing where she is, and denying any fall. She denies any pain at the current time and has no other complaints. Objective Vital Signs and I&Os Vital Signs Date Time Temp Pulse Resp B/P Pulse O2 O2 Flow FiO2 Ox Delivery Rate 06/22 0523 Nasal 2.0L Cannula 06/22 0508 97.6 95 20 156/78 99 Nasal 2.0L Cannula 06/22 0331 97.4 91 20 164/75 100 Nasal 2.0L Cannula 06/22 0100 97.0 70 18 168/74 95 Nasal 2.0L Cannula 06/21 2308 97.7 79 18 175/77 97 Nasal 2.0L Cannula Intake & Output 06/22 0800 06/22 0000 06/21 1600 06/21 0800 06/21 0000 06/20 1600 Intake Total 100 Output Total 120 Balance -20 Intake, IV 100 Output, Urine 120 Patient 115 lb 99 lb 15.99 oz Weight Physical Exam: Gen.: Alert and confused in no obvious distress Skin: Warm and dry Extremities: Bilateral lower extremities are warm without calf tenderness or skin edema gross motor and sensory are intact. Right hip is minimally tender to palpation. Thigh compartments are soft and overlying skin is intact. Assessment/Plan Assessment/Plan Assessment: 75-year-old female status post fall who sustained a right hip fracture. The patient is confused however this is most likely her baseline. Recommendations: The patient will require surgical intervention once deemed an acceptable risk and if agreed upon by the power of assistant county attorney. Follow-up morning laboratory studies Keep nothing by mouth with gentle hydration PRN pain medications GI and DVT prophylaxis Strict bedrest until operative repair
[2016-06-22 07:46] LABS: ABSOLUTE BASOPHIL COUNT 0 /CUMM (0.0-0.2); ABSOLUTE EOSINOPHIL COUNT 0.1 /CUMM (0.0-0.7); ABSOLUTE GRANULOCYTE CT 6.8 /CUMM (1.4-6.5); ABSOLUTE LYMPH COUNT 1.2 /CUMM (1.2-3.4); ABSOLUTE MONOCYTE COUNT 0.9 /CUMM (0.10-0.60); BASOPHIL % 0.4 % (0.0-2.0); EOSINOPHIL % 1.5 % (0-5); GRANULOCYTE % 74.9 % (42.2-75.2); MEAN CORPUSCULAR HGB 29.9 PG (27.0-31.0); MEAN CORPUSCULAR HGB CONC 32.3 G/DL (33.0-37.0); MEAN CORPUSCULAR VOLUME 92.4 FL (81.0-99.0); MEAN PLATELET VOLUME 9.8 FL (7.4-10.4); PLATELET COUNT 184 /CUMM (130-400); RED BLOOD CELL CT 3.57 /CUMM (4.20-5.40); WHITE BLOOD CELL COUNT 9.1 /CUMM (4.8-10.8)
--- NOTE | 2016-06-22 08:54 | Event Note ---
Event Note Event Note: Hypokalemia had resolved and K was 4.1 in the AM. Patient was assigned to RCRI class II given history of CVA corresponding to a [id number] (0.9%) risk of major cardiac events. She subsequently went for orthopedic surgery in the afternoon without waiting for the ECHO. She will be started on warfarin for DVT PPx post-surgery. Her home medications were continued. ECHO is still pending.
--- NOTE | 2016-06-22 11:55 | PN- Att Addend ---
Attending Addendum Attending Brief Note Patient seen and examined, she is not able to provide a good history secondary to having dementia. She is a 75-year-old female who was admitted mechanical fall and found to have acute comminuted intertrochanteric fracture of the right hip. Vital Signs Date Time Temp Pulse Resp B/P Pulse O2 O2 Flow FiO2 Ox Delivery Rate 06/22 1040 95 156/78 06/22 1039 95 15606/22 0800 Nasal 2.0L Cannula 06/22 0523 Nasal 2.0L Cannula 06/22 0508 97.6 95 20 156/78 99 Nasal 2.0L Cannula 06/22 0331 97.4 91 20 164/75 100 Nasal 2.0L Cannula 06/22 0100 97.0 70 18 168/74 95 Nasal 2.0L Cannula 06/21 2308 97.7 79 18 175/77 97 Nasal 2.0L Cannula on exam; awake, nad. cv; s1,s2, rrr resp; clear b/l but decrease bs at b/l bases. abd; soft, nt, bs+ ext; no edema. Laboratory Tests 06/22 06/22 0615 0134 Chemistry Sodium (137 - 145 mmol/L) 137 138 Potassium (3.5 - 5.1 mmol/L) 4.1 3.1 L Chloride (98 - 107 mmol/L) 98 95 L Carbon Dioxide (22 - 30 mmol/L) 34 H 37 H Anion Gap (5 - 16) 5 7 BUN (7 - 17 mg/dL) 16 18 H Creatinine (0.5 - 1.0 mg/dL) 0.6 0.6 Estimated GFR (>60 ml/min) > 60 > 60 BUN/Creatinine Ratio (7 - 25 %) 26.7 H 30.0 H Glucose (65 - 99 mg/dL) 127 H Calcium (8.4 - 10.2 mg/dL) 9.7 Total Bilirubin (0.2 - 1.3 mg/dL) 0.4 AST (14 - 36 U/L) 21 ALT (9 - 52 U/L) 23 Alkaline Phosphatase (<127 U/L) 72 Troponin I (< 0.11 ng/ml) < 0.01 Total Protein (6.3 - 8.2 g/dL) 6.7 Albumin (3.5 - 5.0 g/dL) 3.4 L Globulin (1.9 - 4.2 gm/dL) 3.3 Albumin/Globulin Ratio (1.1 - 2.2 %) 1.0 L Coagulation PT (9.4 - 12.5 SEC) 13.0 H INR (0.90 - 1.19) 1.24 H Hematology CBC w Diff NO MAN DIFF REQ WBC (4.8 - 10.8 /CUMM) 9.1 RBC (4.20 - 5.40 /CUMM) 3.57 L Hgb (12.0 - 16.0 G/DL) 10.7 L Hct (37 - 47 %) 33.0 L MCV (81.0 - 99.0 FL) 92.4 MCH (27.0 - 31.0 PG) 29.9 RDW (11.5 - 14.5 %) 14.0 Plt Count (130 - 400 /CUMM) 184 MPV (7.4 - 10.4 FL) 9.8 Gran % (42.2 - 75.2 %) 74.9 Lymphocytes % (20.5 - 51.1 %) 13.5 L Monocytes % (1.7 - 9.3 %) 9.7 H Eosinophils % (0 - 5 %) 1.5 Basophils % (0.0 - 2.0 %) 0.4 Absolute Granulocytes (1.4 - 6.5 /CUMM) 6.8 H Absolute Lymphocytes (1.2 - 3.4 /CUMM) 1.2 Absolute Monocytes (0.10 - 0.60 /CUMM) 0.9 H Absolute Eosinophils (0.0 - 0.7 /CUMM) 0.1 Absolute Basophils (0.0 - 0.2 /CUMM) 0 PUBS MCHC (33.0 - 37.0 G/DL) 32.3 L Toxicology Phenytoin (10.0 - 20.0 ug/mL) 4.2 L 06/22 0100 Hematology CBC w Diff NO MAN DIFF REQ WBC (4.8 - 10.8 /CUMM) 9.4 RBC (4.20 - 5.40 /CUMM) 3.85 L Hgb (12.0 - 16.0 G/DL) 11.7 L Hct (37 - 47 %) 35.4 L MCV (81.0 - 99.0 FL) 92.0 MCH (27.0 - 31.0 PG) 30.4 RDW (11.5 - 14.5 %) 13.8 Plt Count (130 - 400 /CUMM) 196 MPV (7.4 - 10.4 FL) 9.7 Gran % (42.2 - 75.2 %) 82.9 H Lymphocytes % (20.5 - 51.1 %) 10.4 L Monocytes % (1.7 - 9.3 %) 4.8 Eosinophils % (0 - 5 %) 1.8 Basophils % (0.0 - 2.0 %) 0.1 Absolute Granulocytes (1.4 - 6.5 /CUMM) 7.8 H Absolute Lymphocytes (1.2 - 3.4 /CUMM) 1.0 L Absolute Monocytes (0.10 - 0.60 /CUMM) 0.5 Absolute Eosinophils (0.0 - 0.7 /CUMM) 0.2 Absolute Basophils (0.0 - 0.2 /CUMM) 0 PUBS MCHC (33.0 - 37.0 G/DL) 33.0 A/P; 75 y/o F with pmh sig for epilepsy/simple partial seizures, osteoporosis, hypothyroidism, unspecified dementia without behavioral disturbances, major depressive disorder, essential hypertension, COPD on 2 L/ch resp failure, [facility] and found to have acute comminuted intertrochanteric fracture of the right hip. Other than hypertension, no known cardiac history. EKG reviewed and shows sinus rhythm. Would recommend getting echocardiogram. According to our CRI risk stratification scoring, patient has class II disc with 0.9% risk of major cardiac events. Other than echo, no further cardiac testing required. Patient is at [id number] risk for an intermediate risk procedure. Continue her home medications. If patient goes for orthopedic surgery today, she should be started on DVT prophylaxis postoperatively.
--- NOTE | 2016-06-22 12:33 | NUR ---
PT LEFT FLOOR VIA PTS OWN BED TO OR, WILL CONTINUE TO MONITOR.
--- NOTE | 2016-06-22 14:27 | Discharge Summary ---
Visit Information Visit Dates Admission Date: 06/22/16 Discharge Date: 06/26/16 Hospital Course Course Attending Physician: Dr. Resendiz Primary Care Physician: OG RUSSELL,RICARDO Verdugo Consulting Request: Consulting Specialty: Orthopedics Hospital Course: Pt is a 75 year old Female resident at [facility], with a pmh significant for HTN, COPD, Epilepsy, hypothyroidism, osteoporosis, dementia, and depression who was BIBA from her [facility] after reports of a fall with subsequent complaints of "the worst pain ever" in her R hip (per W10). Pt did not recall the event and it was unclear if it was a witnessed event. Vitals on admission Vital Signs Date Time Temp Pulse Resp B/P Pulse O2 O2 Flow FiO2 Ox Delivery Rate 06/21 2308 97.7 79 18 175/77 97 Nasal 2.0L Cannula On examination: Alert, not oriented, inappropriate response, follows instructions, no focal neurological deficit, right lower extremity externally rotated shortened, neck supple, no JVD, no lymphadenopathy, no open wounds, cachectic, CVS: S1-S2, RRR. RS: Clear to auscultate bilaterally. Abdomen: Soft, NT, ND, bowel sounds present. No pedal edema. Labs: CBC unremarkable, potassium 3.1, bicarbonate 37, BUN 18, glucose 127, troponin T negative, LFT unremarkable. INR 1.24, phenytoin level 4.2. CXR: Ill-defined opacity within the right lower lobe may represent a manifestation of subsegmental atelectasis or consolidative disease. 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 Mild global parenchymal loss. No evidence of acute cranial hemorrhage. X-ray right hip: There is an acute comminuted intertrochanteric fracture of the right hip with slight varus and posterior angulation at the site of fracture. She was seen by orthopedic in ER and plan was to admit on general medicine floor for clearance and management of medical comorbidities. Consent was obtained from patient's POA for surgical intervention. She was kept nothing by mouth with gentle hydration. Her pain was managed with PO and IV Tylenol and IV morphine was also ordered for severe pain. patient did not have any cardiac history other than hypertension. EKG was done thatdid not show any acute ST-T wave changes. Echocardiogram was ordered. according to her RCRI risk stratification scoring patient had class II disc with 0.9% risk of major cardiac events. Other than echo, no further cardiac testing was required. Patient was at [id number] risk for an intermediate risk procedure. GI prophylaxis was given. She had ORIF right hip on 06/22/2016. She was started on postop DVT prophylaxis with Coumadin. Physical therapy evaluation and treatment was ordered. She was started on heart healthy diet postop. Per orthopedic recommendations she was nonweightbearing right leg. She was discharged back to her long term. Paticesarn needs to be f/u with orthpedic on 07/07/16n for staple removal at his office Allergies: Coded Allergies: lisinopril (Mild, UNKNOWN 06/21/16) Significant Procedures: Operative/Inv Procedure Report Surgery Date: 06/22/16 Name of Procedure: ORIF right intertrochanteric hip fracture Pre-Operative Diagnosis: Right base of neck/intertrochanteric hip fracture Post-Operative Diagnosis: Same Estimated Blood Loss: 50ml to 100ml Surgeon/Lieutenant Ballistics: Wong Medina MD Anesthesia: block Implants: [place] 135, 3 hole sideplate Drains: None Specimens: None Complications: None Condition: Stable Operative Indication: Patient is a 75-year-old woman with history of dementia who fell at nursing facility injuring her right hip. She was found to have a displaced and comminuted intertrochanteric/base of neck hip fracture. She was placed on the medical service for medical clearance. Recommendation for ORIF. Risks benefits and expectations were discussed with the patient's power of state attorney and consent was obtained. These risks included but were not limited to persistent hip pain, need for subsequent surgery, infection, malunion, nonunion, anesthesia risks, DVT. Operative/Procedure Note Note: Patient was brought to the operating room and transferred to the operating table. Once under appropriate anesthesia the right lower extremity was prepped and draped in standard fashion. Preoperative IV antibiotic's were given prophylactically Preoperative fluoroscopic images were done to verify reduction. A standard lateral incision was made based over the right hip. Incision was taken down sharply to the underlying fascia. The fascia was incised in line with the skin incision. The vastus lateralis was reflected anteriorly and incision was made at the lower posterior aspect of the vastus lateralis and subperiosteal dissection was made exposing the lateral aspect the proximal femur. These a guidewire for the [place] system and drilled up into the femoral head. I visualized the position of the guide pin on both AP and lateral planes. I was satisfied with position. I then measured it to 90 mm. Reaming followed. I then placed the definitive 90 mm screw across the lateral aspect of the femur across the fracture site into the femoral head. I was satisfied with position. I then placed the 135 [address] It was impacted onto the bone and then 3 bicortical screws were placed in standard fashion. Intraoperative fluoroscopic images were obtained confirming reduction of the fracture and stability of the fracture as well as position of the hardware. Copious irrigation of the hip followed. The vastus lateralis was repaired anatomically using a running 0 Vicryl suture. Fascia was closed with interrupted #1 Vicryl sutures followed by 2 level closure of the subcutaneous tissue with 2-0 Vicryl. Skin was closed with alysa. A probe progestins were applied and patient was awakened and taken the recovery room in good condition. No intraoperative complications. Blood loss was 50 mL Discharge Disposition: PACU Disposition Summary Disposition Principal Diagnosis: mechanical fall resulting in acute comminuted intertrochanteric fracture of the right hip. Additional Diagnosis: none Discharge Disposition: SNF Discharge Instructions General Discharge Information Code Status: Full Code Patient's Diet: Regular diet Patient's Activity: With assistance Follow-Up Instructions/Appts: Surgical clips should be removed on postop day #15 on 07/07/16 at Wong Medina MD office and incision reinforced with Steri-Strips Please follow up with your primary care in 1 week Medications at Discharge Discharge Medications: Continue taking these medications: Phenytoin (Dilantin) 100 MG CAPSULE 130 Milligram ORAL AT BEDTIME Comments: Last Taken: 06/25/16 Time: 2200 Levetiracetam (Keppra) 500 MG TABLET 500 Milligram ORAL TWICE DAILY Comments: Last Taken: 06/26/16 Time: 1000 Escitalopram Oxalate (Lexapro) 10 MG TABLET 15 Milligram ORAL DAILY Comments: Last Taken: 06/26/16 Time: 1000 Metoprolol Tartrate (Metoprolol Tartrate) 25 MG TABLET 12.5 Milligram ORAL TWICE DAILY Famotidine (Pepcid) 20 MG TABLET 20 Milligram ORAL 0430 Comments: NOT GIVEN Amlodipine Besylate (Amlodipine Besylate) 10 MG TABLET 10 Milligram ORAL DAILY Comments: Last Taken: 06/25/16 Time: 1000 Alendronate Sodium (Alendronate Sodium) 70 MG TABLET 70 Milligram ORAL EVERY WEDNESDAY Comments: Last Taken: 06/25/16 Time: 1000 Donepezil HCl (Donepezil HCl) 5 MG TABLET 5 Milligram ORAL Every night Comments: Last Taken: 06/26/16 Time: 1000 Sennosides (Senna) 8.6 MG TABLET 8.6 Milligram ORAL DAILY Comments: Last Taken: 06/25/16 Time: 2200 Travoprost (Travatan Z) 0.004 % DROPS 1 DROP Both Eyes DAILY Comments: Last Taken: 06/25/16 Time: 1000 Fluticasone/Salmeterol (Advair 250-50 Diskus) 250 MCG-50 MCG/DOSE BLST.W.DEV 2 Puff Inhale through mouth TWICE DAILY Comments: NOT GIVEN Phenytoin (Dilantin) 100 MG CAPSULE 1 Capsule ORAL DAILY Comments: Last Taken: 06/26/16 Time: 1000 Polyethylene Glycol 3350 (Miralax) 17 GRAM POWD.PACK 1 Packet ORAL DAILY as needed for CONSTIPATION Instructions: dissolve in water Comments: Last Taken: 06/26/16 Time: 1000 Trazodone HCl (Trazodone HCl) 50 MG TABLET 0.5 Tablet ORAL EVERY SIX HOURS NEEDED as needed for AGITATION Comments: Last Taken: 06/25/16 Time: 2200 Umeclidinium [place] (Incruse Ellipta) 62.5 MCG/ACTUATION BLST.W.DEV 1 PUFF Inhale through mouth DAILY Comments: NOT TAKEN Start taking the following new medications: Acetaminophen (Tylenol) 325 MG TABLET 650 Milligram ORAL EVERY SIX HOURS NEEDED as needed for PAIN SCALE 1-3 ( MILD) Qty = 30 No Refills Warfarin Sodium (Coumadin) 2 MG TABLET 1 Tablet ORAL QD PER INR as needed for DVT PPX Days = 42 No Refills Instructions: PLEASE ADJUST DOSE BASED ON INR (DVT PPX). PT REQUIRES 6 WEEKS OF THERAPY. Copies To: OG RUSSELL,RICARDO Verdugo
[2016-06-22 16:20] VITALS: BP 144/72
--- NOTE | 2016-06-22 16:20 | NUR ---
PT UP TO FLOOR FROM PACU VIA BED TO ROOM. PT ALERT TO SELF. PT ON 2L NC. VSS. PT DENIES PAIN. NICK TO R HIP W DRIED BLOODY DRAINAGE OUTLINED. BEV TO BSD . ALPS TO BLE. BED ALARM IN PLACE.IV IN JULIO NOT FLUSHING AND REMOVED . WILL ATTEMPT NEW IV.
--- NOTE | 2016-06-22 18:30 | PN- Orthopedic ---
Subjective Subjective: Post op check: Patient s/p orif right hip, tolerated procedure. Is confused, has been since admission, unable to confirm or deny discomfort at the present time. Objective Vital Signs and I&Os Vital Signs Date Time Temp Pulse Resp B/P Pulse O2 O2 Flow FiO2 Ox Delivery Rate 06/22 1620 Nasal 2.0L Cannula 06/22 1620 98.0 84 18 144/72 98 Nasal 2.0L Cannula 06/22 1040 95 156/78 06/22 1039 95 156/78 06/22 0800 Nasal 2.0L Cannula 06/22 0523 Nasal 2.0L Cannula 06/22 0508 97.6 95 20 156/78 99 Nasal 2.0L Cannula 06/22 0331 97.4 91 20 164/75 100 Nasal 2.0L Cannula 06/22 0100 97.0 70 18 168/74 95 Nasal 2.0L Cannula 06/21 2308 97.7 79 18 175/77 97 Nasal 2.0L Cannula Intake & Output 06/22 1600 06/22 0800 06/22 0000 06/21 1600 06/21 0800 06/21 0000 Intake Total 600 100 Output Total 120 Balance 600 -20 Intake, IV 600 100 Intake, Oral 0 Number 0 Bowel Movements Output, Urine 120 Patient 115 lb 99 lb 15.99 oz Weight Physical Exam: General: Confused, repeating same questions, not in any acute distress Cardiac: RRR Pulm: CTA bialteral Abdomen: Non-distended Extremites: Moves all extremities, skin warm, dp pulses palpable, calves soft bialtearlly, dressing with quarter size staining, thigh compartment soft. Assessment/Plan Assessment/Plan This is a 75 year old female, POD 0, s/p orif r hip, confused at baseline -Continue current pain regimen -OOB with pt to chair, nwb -Diet as tolerated -Coumadin for dvt ppx -F/U am labs -Will d/w [place] -Medicine as primary
--- NOTE | 2016-06-22 20:00 | NUR ---
MANY ATTEMPTS MADE TO START IV ACCESS. HOUSESTAFF AWARE WILL REATTEMPT . PT CLAM AND NO S/SX PAIN AT PRESENT.
--- NOTE | 2016-06-22 22:00 | RADIOLOGY REPORT ---
EXAMINATION: INTRAOPERATIVE FLUOROSCOPIC GUIDANCE AND RIGHT HIP CLINICAL INFORMATION: Right hip fracture. Internal fixation. COMPARISON: 06/21/2016. TECHNIQUE: Fluoroscopic time was utilized in the OR for Dr. Arechiga. Fluoroscopic images were obtained in AP neutral and frog-leg lateral projections. FINDINGS: Fluoroscopic guidance was provided during reduction and fixation of the right hip fracture. On the final image a dynamic hip screw is in position. Alignment is adequate. FLUOROSCOPY TIME: 12 seconds of fluoroscopic time was utilized for the entirety of this examination. IMPRESSION: Fluoroscopic guidance was provided during reduction and fixation of the right hip fracture. On the final image a dynamic hip screw is in position. Alignment is adequate.
[2016-06-22 22:30] VITALS: BP 128/60
--- NOTE | 2016-06-22 22:55 | NUR ---
PT ATTEMPTS TO GET OOB FREQ. BED ALARM NOT EFFECTIVE DETERRENT. PT S/P R ORIF. HX OF DEMENTIA . NEEDS FREQ REORIENTATION. 1:1 SITTER ORDERED FOR PT [place]. HIGH FALL RISK.
[2016-06-23 07:07] VITALS: BP 130/58
--- NOTE | 2016-06-23 07:24 | PN- Housestaff ---
CANELO RUSSELL,RYDER 06/23/16 0724: Subjective Follow-up For: Right hip fracture Subjective: Patient is seen and examined at bedside with sitter still in place. Patient still appears confused and disoriented and asks why she is here. Patient is postoperative day 1 status post right hip ORIF. Patient is endorsing pain at the affected surgical site. She does not have any other acute complaints including shortness of breath, dizziness, chest pain, palpitation, fever, chills , abdominal pain or dysuria. No acute overnight event reported by nursing staff. Review of Systems Constitutional: Reports: see HPI. Objective Last 24 Hrs of Vital Signs/I&O Vital Signs Date Time Temp Pulse Resp B/P Pulse O2 O2 Flow FiO2 Ox Delivery Rate 06/23 0707 98.4 86 18 130/58 100 Nasal Cannula 06/23 0000 Nasal 2.0L Cannula 06/22 223 98.7 101 20 128/60 99 06/22 2200 100 128/60 06/22 1620 Nasal 2.0L Cannula 06/22 1620 98.0 84 18 144/72 98 Nasal 2.0L Cannula 06/22 1040 95 156/78 06/22 1039 95 156/78 Intake & Output 06/23 1600 06/23 0800 06/23 0000 Intake Total 390 Output Total 100 225 Balance -100 165 Intake, IV 150 Intake, Oral 240 Output, Urine 100 225 Physical Exam General Appearance: Alert, confused not oriented to place or time Skin: No Significant Lesion HEENT: Atraumatic, Mucous Membr. moist/pink, nasal canuli in place Neck: Supple Lymphatic: Cervical nl Cardiovascular: Regular Rate, Normal S1, Normal S2, No Murmurs Lungs: Clear to Auscultation, Normal Air Movement Abdomen: Soft, No Tenderness, abdominal bruit appreciated Neurological: Sensation Intact Extremities: dressing intact at right hip surgical area. no obvious acute bleeding or drainage noted. Vascular: Pulses Symmetrical Current Medications: Current Medications Sig/Marquis Start time Last Medication Dose Route Stop Time Status Admin Acetaminophen 650 MG Q6P PRN 06/22 0200 AC PO Acetaminophen 1,000 MG Q8P PRN 06/22 0200 AC 06/22 IV 1654 Acetaminophen/ 1 TAB ONCE ONE 06/22 2229 DC Hydrocodone Bitart PO 06/22 2230 Alendronate Sodium 70 MG QTHURS 06/25 1000 CAN PO Alendronate Sodium 70 MG QTHURS 06/25 1000 AC PO Amlodipine Besylate 10 MG DAILY 06/22 1000 AC 06/22 PO 1040 Budesonide/ 2 PUF BID 06/22 2200 AC 06/22 Formoterol Fumarate INH 2201 Budesonide/ 1 PUF BID 06/22 1325 DC Formoterol Fumarate INH Cefazolin Sodium 1,000 MG .STK-MED ONE 06/22 0816 DC IV 06/22 0817 Dextrose/Sodium 1,000 ML .[id number] 06/22 0200 AC 06/22 Chloride IV 1646 Donepezil HCl 5 MG DAILY 06/22 1430 AC 06/22 PO 1818 Donepezil HCl 5 MG DAILY 06/22 1409 DC PO Escitalopram Oxalate 15 MG DAILY 06/22 1425 AC 06/22 PO 1818 Escitalopram Oxalate 15 MG DAILY 06/22 1422 DC PO Fentanyl Citrate 100 MCG .STK-MED ONE 06/22 1258 DC IM 06/22 1259 Ketamine HCl 50 MG .STK-MED ONE 06/22 1258 DC IM 06/22 1259 Latanoprost 1 GTT AT BEDTIME 06/22 2200 AC 06/22 OPH 2200 Levetiracetam 500 MG BID 06/22 1000 AC 06/22 PO 2159 Metoprolol Tartrate 12.5 MG BID 06/22 1000 AC 06/22 PO 2200 Midazolam HCl 2 MG .STK-MED ONE 06/22 1258 DC IM 06/22 1259 Morphine Sulfate 2 MG Q8P PRN 06/22 0200 AC 06/22 IV 2209 Ondansetron HCl 4 MG Q6P PRN 06/22 0500 AC 06/22 IV 0501 Pantoprazole Sodium 40 MG DAILY 06/22 1100 AC IV Phenytoin 130 MG AT BEDTIME 06/22 2200 AC 06/22 PO 2157 Phenytoin 100 MG DAILY 06/22 1000 AC 06/22 PO 1039 Polyethylene Glycol 17 GM DAILY 06/22 1321 AC 06/22 PO 1818 Senna 187 MG AT BEDTIME 06/22 2200 AC 06/22 PO 2159 Senna/Docusate Sodium 1 TAB BID 06/22 1322 DC PO Trazodone HCl 25 MG Q6P PRN 06/22 0400 AC PO Warfarin Sodium 5 MG COUMADIN 1700 ONE 06/22 1700 DC 06/22 PO 06/22 1701 1818 Last 24 Hrs of Lab/David Results Last 24 Hrs of Labs/Mics: Laboratory Tests 06/23/16 0620: Sodium Pending, Potassium Pending, Chloride Pending, Carbon Dioxide Pending, Anion Gap Pending, BUN Pending, Creatinine Pending, BUN/Creatinine Ratio Pending , PT Pending, INR Pending, CBC w Diff Pending, WBC Pending, RBC Pending, Hgb Pending, Hct Pending, MCV Pending, MCH Pending, RDW Pending, Plt Count Pending, MPV Pending, PUBS MCHC Pending Assessment/Plan Assessment: Ms. Ferro is a 75 year old female with PMH epilepsy/simple partial seizures, osteoporosis, hypothyroidism, unspecified dementia without behavioral disturbances, major depressive disorder, essential hypertension, COPD on 2 L nasal cannula continuously and muscle weakness who presented for evaluated status post mechanical fall resulting in right hip intertrochanteric fracture. Hip XRay was significant for an acute comminuted intertrochanteric fracture of the right hip with slight varus and posterior angulation at the site of fracture. CXR showed ill-defined opacity within the right lower lobe that may represent a manifestation of subsegmental atelectasis or consolidative disease. 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 Mild global parenchymal loss. No evidence of acute cranial hemorrhage. Patient is admitted to the general medicine floor and the following is the management: 1. Acute comminuted right hip intertrochanteric fracture * Postoperative day 1 , Status post reduction and fixation of the right hip fracture with dynamic hip screw is in position and adequate alignment. 2. Acute hyponatremia Mild acute hyponatremia with sodium level of 134. Most likely secondary to IV fluid hydration with D5 half normal saline since yesterday. Will discontinue IV hydration and encourage oral fluid intake. Will trend BEP tomorrow. 3. DVT prophylaxis In the setting of right hip ORIF, and anticipated immobilization patient is a increased risk for DVT and therefore warrants prophylaxis. Continue warfarin 5 mg and trend INR. 3. History of epilepsy * Dilantin level noted to be low to 4.2 * Dilantin 130 mg PO at bedtime, Dilantin 100 mg PO daily * Keppra 500 mg PO BID 5. Dementia without behavioral disturbance * Will restart donepezil and Aricept 6. COPD * No acute exacerbation currently * Patient currently at home O2 via NC (2 L) * Continue supplemental O2 as needed * Monitor respiratory status closely * TRC nebs * Incentive spirometry for atelectatic areas 7. Essential HTN * Vital signs Q shift * Continue amlodipine 10 mg PO daily and metoprolol 8. Major depressive disorder * Will restart Lexapro today FULL CODE Problem List: 1. Fracture of right hip Pain Ratin Pain Location: Right hip area Pain Goal: Pain 4 or less Pain Plan: Per pain pathway Tomorrow's Labs & Rationales: BEP-trending hyponatremia CBC-postop INR-on coagulation Consulting Request: Consulting Specialty: Orthopedics DINA COLLINS MD 06/23/16 1155: Attending MD Review Statement Attending Statement Attending MD Statement: examined this patient, discuss w/resident/PA/COORDINATING PRODUCER, agreed w/resident/PA/COORDINATING PRODUCER, reviewed EMR data (avail), discussed with nursing, discussed with case mgmt, reviewed images, amended to note Attending Assessment/Plan: Patient seen and examined, she has dementia therefore was not able to communicate well. She is postop day #1 status post right hip ORIF. Vital Signs Date Time Temp Pulse Resp B/P Pulse O2 O2 Flow FiO2 Ox Delivery Rate 06/23 0800 94 Nasal 2.0L Cannula 06/23 0707 98.4 86 18 130/58 100 Nasal Cannula 06/23 0000 Nasal 2.0L Cannula 06/22 2230 98.7 101 20 128/60 99 06/22 2200 100 128/60 06/22 1620 Nasal 2.0L Cannula 06/22 1620 98.0 84 18 144/72 98 Nasal 2.0L Cannula on exam; awake, nad, not oriented, confused at baseline 2/2 to dementia. cv; s1,s2, rrr resp; clear abd; soft, nt, bs+. ext; no edema, ms; + dressing on right hip, alysa look clean. Laboratory Tests 06/23 0620 Chemistry Sodium (137 - 145 mmol/L) 134 L Potassium (3.5 - 5.1 mmol/L) 4.0 Chloride (98 - 107 mmol/L) 98 Carbon Dioxide (22 - 30 mmol/L) 32 H Anion Gap (5 - 16) 4 L BUN (7 - 17 mg/dL) 13 Creatinine (0.5 - 1.0 mg/dL) 0.6 Estimated GFR (>60 ml/min) > 60 BUN/Creatinine Ratio (7 - 25 %) 21.7 Coagulation PT (9.4 - 12.5 SEC) 14.6 H INR (0.90 - 1.19) 1.40 H Hematology CBC w Diff NO MAN DIFF REQ WBC (4.8 - 10.8 /CUMM) 10.4 RBC (4.20 - 5.40 /CUMM) 2.92 L Hgb (12.0 - 16.0 G/DL) 8.9 L Hct (37 - 47 %) 26.9 L MCV (81.0 - 99.0 FL) 92.2 MCH (27.0 - 31.0 PG) 30.4 RDW (11.5 - 14.5 %) 13.6 Plt Count (/CUMM) MPV (7.4 - 10.4 FL) 10.5 H Gran % (42.2 - 75.2 %) 73.4 Lymphocytes % (20.5 - 51.1 %) 13.2 L Monocytes % (1.7 - 9.3 %) 10.6 H Eosinophils % (0 - 5 %) 2.7 Basophils % (0.0 - 2.0 %) 0.1 Absolute Granulocytes (1.4 - 6.5 /CUMM) 7.6 H Absolute Lymphocytes (1.2 - 3.4 /CUMM) 1.4 Absolute Monocytes (0.10 - 0.60 /CUMM) 1.1 H Absolute Eosinophils (0.0 - 0.7 /CUMM) 0.3 Absolute Basophils (0.0 - 0.2 /CUMM) 0 PUBS MCHC (33.0 - 37.0 G/DL) 32.9 L A/P; 75 y/o F with pmh sig for epilepsy/simple partial seizures, osteoporosis, hypothyroidism, unspecified dementia without behavioral disturbances, major depressive disorder, essential hypertension, COPD on 2 L/ch resp failure, admitted with [facility] fall and found to have acute comminuted intertrochanteric fracture of the right hip. Status post right hip ORIF postop day #1 today. Patient on Tylenol and morphine for pain control. Her H&H is slightly dropped likely secondary to acute blood loss anemia from postop. Will monitor the H&H. No need to transfuse yet. Continue other current medications. Patient worked with physical therapy. For DVT prophylaxis she has been started on Coumadin her orthopedic. Please check INR in the morning and give her the same dose of Coumadin at 5 mg today. Slight drop in sodium likely secondary to IV fluids. We'll stop the IV fluids and encourage by mouth intake. Patient will be discharged back to her assisted in 2 days.
[2016-06-23 08:12] LABS: ABSOLUTE BASOPHIL COUNT 0 /CUMM (0.0-0.2); ABSOLUTE EOSINOPHIL COUNT 0.3 /CUMM (0.0-0.7); ABSOLUTE GRANULOCYTE CT 7.6 /CUMM (1.4-6.5); ABSOLUTE LYMPH COUNT 1.4 /CUMM (1.2-3.4); ABSOLUTE MONOCYTE COUNT 1.1 /CUMM (0.10-0.60); BASOPHIL % 0.1 % (0.0-2.0); EOSINOPHIL % 2.7 % (0-5); GRANULOCYTE % 73.4 % (42.2-75.2); MEAN CORPUSCULAR HGB 30.4 PG (27.0-31.0); MEAN CORPUSCULAR HGB CONC 32.9 G/DL (33.0-37.0); MEAN CORPUSCULAR VOLUME 92.2 FL (81.0-99.0); MEAN PLATELET VOLUME 10.5 FL (7.4-10.4); RBC DISTRIBUTION WIDTH 13.6 % (11.5-14.5); RED BLOOD CELL CT 2.92 /CUMM (4.20-5.40)
[2016-06-23 08:20] LABS: PT 14.6 SEC (9.4-12.5)
--- NOTE | 2016-06-23 08:22 | PN- Orthopedic ---
See Addendum Subjective Subjective: No complaints. Demented at baseline. Repeating same questions. Denies pain. No dizziness. No shortness of breath. Objective Vital Signs and I&Os Vital Signs Date Time Temp Pulse Resp B/P Pulse O2 O2 Flow FiO2 Ox Delivery Rate 06/23 0707 98.4 86 18 130/58 100 Nasal Cannula 06/23 0000 Nasal 2.0L Cannula 06/22 2230 98.7 101 20 128/60 99 06/22 2200 100 128/60 06/22 1620 Nasal 2.0L Cannula 06/22 1620 98.0 84 18 144/72 98 Nasal 2.0L Cannula 06/22 1040 95 156/78 06/22 1039 95 156/78 Intake & Output 06/23 1600 06/23 0800 06/23 0000 06/22 1600 06/22 0800 06/22 0000 Intake Total 390 600 100 Output Total 100 225 120 Balance -100 165 600 -20 Intake, IV 150 600 100 Intake, Oral 240 0 Number 0 Bowel Movements Output, Urine 100 225 120 Patient 115 lb 99 lb 15.99 oz Weight Physical Exam: General - confused. comfortable. no acute distress. Extremities - right hip dressing stained but intact. no drains. no hematoma. venodynes active b/l. nvi. pain with range of motion with operative leg / ankle. moving toes without difficulty. calves soft and nontender b/l. Assessment/Plan Assessment/Plan This is a 75 year old female with hx dementia, htn, copd, epilepsy, who is POD#1 s/p orif r hip, with confusion / dementia at baseline advance diet as tolerated d/c iv fluids when tolerating diet limit narcotics. tylenol as needed for pain control f/u labs coumadin - dvt ppx PT eval - nwb dressing change tomorrow, post-op day#2 will d/w likely str placement in 1-2 days
[2016-06-23 08:29] LABS: HEMATOCRIT 26.9 % (37-47)
[2016-06-23 09:18] LABS: WHITE BLOOD CELL COUNT 10.4 /CUMM (4.8-10.8)
--- NOTE | 2016-06-23 10:47 | NUR ---
Physical Therapy: Attempted to evaluate pt this morning. At first pt severely lethargic- difficulty opening eyes. 2nd attempt pt yelling in severe pain at rest. Will cx eval this AM and follow up as appropriate. Thank you.
[2016-06-23 14:50] VITALS: BP 120/70
--- NOTE | 2016-06-23 20:17 | ECHOCARDIOGRAM REPORT ---
REBECCA CARDENAS Age: 75 : 1940 Gender: F Exam Date: 06/22/2016 18:57 Exam Location: [place] Ht (in): 64 Wt (lb): 114 BSA: 1.52 BP: 156 / 78 Ordering Physician: AVERY WAKEFIELD MD Referring Physician: AVERY WAKEFIELD MD Technologist: Poornima Gutiérrez [facility] Room Number: 235-02 Indications: HYPERTENSION Rhythm: Sinus Technical Quality: technically limited FINDINGS Left Ventricle Normal left ventricular size with mild left ventricular hypertrophy. Hyperdynamic systolic function with no obvious regional wall motion abnormalities. Diastolic filling pattern is consistent with impaired LV relaxation. The ejection fraction is visually estimated at 80%. Right Ventricle The right ventricle is normal in size and function. Right Atrium The right atrium is normal in size. Left Atrium The left atrium is normal in size. The interatrial septum is intact. Mitral Valve The mitral valve is normal in structure and function. There is no mitral regurgitation. Aortic Valve Structurally normal aortic valve without significant sclerosis or stenosis. There is no aortic regurgitation. Tricuspid Valve The tricuspid valve is normal in structure and function. There is mild tricuspid regurgitation. Pulmonary artery systolic pressure is mildly elevated to 43mmHg. Pulmonic Valve Structurally normal pulmonic valve. There is no pulmonic regurgitation. Pericardium Normal pericardium without effusion. No pleural effusion. Great Vessels Normal aortic root dimension. The aortic arch and great vessels are well seen and are normal. CONCLUSIONS 1. Hypewrdynamic EF of 80% with impaired LV relaxation. 2. Mild left ventricular hypertrophy. 3. Mild tricuspid regurgitation. 4. Mild pulmonary hypertension. Seb Cobos M.D. (Electronically Signed) Final Date: 23 June 2016 20:16 MEASUREMENTS (Male / Female) Normal Values 2D ECHO LV Diastolic Diameter PLAX 3.0 cm 4.2 - 5.9 / 3.9 - 5.3 cm LV Systolic Diameter PLAX 1.5 cm 2.1 - 4.0 cm LV Fractional Shortening PLAX 50.0 % 25 - 46 % LV Ejection Fraction 2D Teich 82.7 % IVS Diastolic Thickness 1.2 cm LVPW Diastolic Thickness 1.2 cm LV Relative Wall Thickness 0.8 RV Internal Dim ED PLAX 2.2 cm 1.9 - 3.8 cm LVOT Diameter 2.0 cm Aortic Root Diameter 2.4 cm LA Systolic Diameter LX 2.2 cm 3.0 - 4.0 / 2.7 - 3.8 cm LA Volume 14.6 cm 18 - 58 / 22 - 52 cm LA Volume Index 9.6 cm/m 16 - 28 cm/m DOPPLER AV Peak Velocity 127.0 cm/s AV Peak Gradient 6.5 mmHg AV Mean Velocity 91.0 cm/s AV Mean Gradient 4.0 mmHg AV Velocity Time Integral 21.4 cm LVOT Peak Velocity 84.6 cm/s LVOT Peak Gradient 2.9 mmHg LVOT Mean Velocity 55.5 cm/s LVOT Mean Gradient 1.0 mmHg LVOT Velocity Time Integral 19.8 cm LVOT Stroke Volume 62.2 cm AV Area Cont Eq vti 2.9 cm AV Area Cont Eq pk 2.1 cm MV Peak Velocity 121.0 cm/s MV Peak Gradient 5.9 mmHg MV Mean Velocity 70.2 cm/s MV Mean Gradient 2.0 mmHg Mitral E Point Velocity 55.8 cm/s Mitral A Point Velocity 95.3 cm/s Mitral E to A Ratio 0.6 MV PHT Velocity 85.8 cm/s MV Deceleration Williamson 478.0 cm/s MV Pressure Half Time 53.8 ms MV Area PHT 4.1 cm MV Deceleration Time 214.0 ms TR Peak Velocity 312.0 cm/s TR Peak Gradient 38.9 mmHg Right Atrial Pressure 5.0 mmHg Pulmonary Artery Systolic Pressu 43.9 mmHg Right Ventricular Systolic Press 43.9 mmHg PV Peak Velocity 134.0 cm/s PV Peak Gradient 7.2 mmHg PV Mean Velocity 88.2 cm/s PV Mean Gradient 4.0 mmHg PV Velocity Time Integral 15.8 cm LV E' Lateral Velocity 6.1 cm/s Mitral E to LV E' Lateral Ratio 9.1 LV E' Septal Velocity 5.0 cm/s Mitral E to LV E' Septal Ratio 11.2
[2016-06-23 21:25] VITALS: BP 140/80
--- NOTE | 2016-06-23 21:30 | NUR ---
THIS RN TOOK PTS VITAL SIGNS. O2 SAT 85%, PT ON RA. PT PUT ON 2LNC, PER PAROLE OFFICER- OK. O2 SAT TO 97%. TEMP 100.3, PER PAROLE OFFICER GIVE 650MG TYLENOL & REASSESS. PT BP 140/80 AND PULSE 110. ADMINISTERED LOPRESSOR 12.5MG PER EMAR. NO NEW ORDERS AT THIS TIME. WILL CONTINUE TO MONITOR.
--- NOTE | 2016-06-23 21:53 | NUR ---
PT PULLED IV OUT, PT DIFFICULT STICK. ENTRY LEVEL LAB TECHNICIAN AWARE THAT PT DOES NOT HAVE IV ACCESS. WILL CONTINUE TO MONITOR.
--- NOTE | 2016-06-23 22:40 | NUR ---
REASSESSMENT OF PTS TEMP 99.2 WILL CONTINUE TO MONITOR.
[2016-06-24 06:55] VITALS: BP 144/70
--- NOTE | 2016-06-24 07:25 | PN- Orthopedic ---
See Addendum Subjective Subjective: The patient was seen this morning postoperatively day #2. She denies any pain at the current time and reports being comfortable. She still remains confused and forgetful and not knowing where she is or what happened to her. Objective Vital Signs and I&Os Vital Signs Date Time Temp Pulse Resp B/P Pulse O2 O2 Flow FiO2 Ox Delivery Rate 06/24 0655 98.8 86 18 144/70 96 Nasal Cannula 06/24 0000 80 06/24 0000 Nasal 2.0L Cannula 06/23 2240 99.2 06/23 2240 99.2 06/23 2142 110 140/80 06/23 2141 100.3 06/23 2125 100.3 110 18 140/80 95 Nasal 2.0L Cannula 06/23 1600 Nasal 2.0L Cannula 06/23 1450 97.2 89 19 120/70 98 06/23 1352 Room Air Room Air 06/23 0800 94 Nasal 2.0L Cannula Intake & Output 06/24 0800 06/24 0000 06/23 1600 06/23 0800 06/23 0000 06/22 1600 Intake Total 100 500 700 600 390 600 Output Total 150 300 100 225 Balance -50 200 700 500 165 600 Intake, IV 300 600 150 600 Intake, Oral 100 500 400 240 0 Number 0 0 0 Bowel Movements Output, Urine 150 300 100 225 Physical Exam: Gen.: Alert and confused and in no obvious distress Skin: Warm and dry Extremities: Bilateral lower extremities are warm without calf tenderness or significant edema. Gross motor and sensory are intact. Right thigh surgical incision is clean and dry without signs of infection. Surgical clips are intact. Assessment/Plan Assessment/Plan Assessment: 75-year-old female status post right femoral ORIF postoperative day #2. The patient is progressing as expected and her pain is under adequate control. Recommendations: Out of bed with physical therapy patient is nonweightbearing on the right lower extremity Follow-up morning laboratory studies and re-dose Coumadin for an INR between 2 and 3 Daily dry dressing change Continue current pain regiment Care per primary team Surgical clips should be removed on postop day #15 and incision reinforced with Steri-Strips The patient should follow-up in the office in approximately 3 weeks
[2016-06-24 07:57] LABS: ABSOLUTE BASOPHIL COUNT 0 /CUMM (0.0-0.2); ABSOLUTE EOSINOPHIL COUNT 0.3 /CUMM (0.0-0.7); ABSOLUTE GRANULOCYTE CT 7.8 /CUMM (1.4-6.5); ABSOLUTE LYMPH COUNT 1.7 /CUMM (1.2-3.4); BASOPHIL % 0.5 % (0.0-2.0); EOSINOPHIL % 2.4 % (0-5); MEAN CORPUSCULAR HGB 30.1 PG (27.0-31.0); MEAN CORPUSCULAR HGB CONC 32.5 G/DL (33.0-37.0); MEAN CORPUSCULAR VOLUME 92.8 FL (81.0-99.0); MEAN PLATELET VOLUME 9.4 FL (7.4-10.4); PLATELET COUNT 162 /CUMM (130-400); RBC DISTRIBUTION WIDTH 13.6 % (11.5-14.5); RED BLOOD CELL CT 3.48 /CUMM (4.20-5.40); WHITE BLOOD CELL COUNT 10.8 /CUMM (4.8-10.8)
[2016-06-24 08:25] LABS: PT 33.2 SEC (9.4-12.5)
[2016-06-24 08:29] LABS: HEMATOCRIT 32.3 % (37-47)
--- NOTE | 2016-06-24 11:05 | PN- Housestaff ---
CANELO RUSSELL,RYDER 06/24/16 1104: Subjective Follow-up For: Right hip fracture Status post ORIF Subjective: Patient seen and examined at bedside. She remains disoriented to person place and time. She does not endorse any acute complaints however this is unreliable due to high dementia and disorientation. Nursing staff reports decreased oral intake,however patient is drinking adequate fluids. Review of Systems Constitutional: Reports: no symptoms. Objective Last 24 Hrs of Vital Signs/I&O Vital Signs Date Time Temp Pulse Resp B/P Pulse O2 O2 Flow FiO2 Ox Delivery Rate 06/24 1051 85 138/68 06/24 1050 85 138/68 06/24 0655 98.8 86 18 144/70 96 Nasal Cannula 06/24 0000 80 06/24 0000 Nasal 2.0L Cannula 06/23 2240 99.2 06/23 2240 99.2 06/23 2142 110 140/80 06/23 2141 100.3 06/23 2125 100.3 110 18 140/80 95 Nasal 2.0L Cannula 06/23 1600 Nasal 2.0L Cannula 06/23 1450 97.2 89 19 120/70 98 Intake & Output 06/24 1600 06/24 0800 06/24 0000 Intake Total 500 100 500 Output Total 300 150 300 Balance 200 -50 200 Intake, Oral 500 100 500 Number 0 Bowel Movements Output, Urine 300 150 300 Patient 51.71 kg Weight Physical Exam General Appearance: Alert Other Physical Findings: Skin: No Significant Lesion HEENT: Atraumatic, Mucous Membr. moist/pink, nasal canuli in place Neck: Supple Lymphatic: Cervical nl Cardiovascular: Regular Rate, Normal S1, Normal S2, No Murmurs Lungs: Clear to Auscultation, Normal Air Movement Abdomen: Soft, No Tenderness, abdominal bruit appreciated Neurological: Sensation Intact Extremities: dressing intact at right hip surgical area. no obvious acute bleeding or drainage noted. Vascular: Pulses Symmetrical Current Medications: Current Medications Sig/Marquis Start time Last Medication Dose Route Stop Time Status Admin Acetaminophen 650 MG .STK-MED ONE 06/24 06 DC PO 06/24 06 Acetaminophen 650 MG ONCE ONE 06/23 2144 DC 06/23 PO 06/23 2145 214 Acetaminophen 650 MG Q6P PRN 06/22 0200 AC PO Acetaminophen 1,000 MG Q8P PRN 06/22 0200 AC 06/22 IV 1654 Alendronate Sodium 70 MG QTHURS 06/25 1000 AC PO Amlodipine Besylate 10 MG DAILY 06/22 1000 AC 06/24 PO 1051 Budesonide/ 2 PUF BID 06/22 2200 AC 06/24 Formoterol Fumarate INH 1053 Donepezil HCl 5 MG DAILY 06/22 1430 AC 06/24 PO 1048 Escitalopram Oxalate 15 MG DAILY 06/22 1425 AC 06/24 PO 1050 Latanoprost 1 GTT AT BEDTIME 06/22 2200 AC 06/23 OPH 2142 Levetiracetam 500 MG BID 06/22 1000 AC 06/24 PO 1049 Melatonin 5 MG AT BEDTIME 06/23 2230 AC 06/23 PO 2232 Metoprolol Tartrate 12.5 MG BID 06/22 1000 AC 06/24 PO 1050 Morphine Sulfate 2 MG Q8P PRN 06/23 1345 AC 06/23 SC 1559 Nicotine 14 MG DAILY 06/23 1339 AC 06/24 TOP 1051 Ondansetron HCl 4 MG Q6P PRN 06/22 0500 AC 06/22 IV 0501 Pantoprazole Sodium 40 MG DAILY 06/25 1000 AC IV Pantoprazole Sodium 40 MG DAILY 06/22 1100 DC 06/23 IV 0957 Phenytoin 130 MG AT BEDTIME 06/22 2200 AC 06/23 PO 2141 Phenytoin 100 MG DAILY 06/22 1000 AC 06/24 PO 1320 Polyethylene Glycol 17 GM DAILY 06/22 1321 AC 06/24 PO 1051 Senna 187 MG AT BEDTIME 06/22 2200 AC 06/23 PO 2142 Trazodone HCl 25 MG Q6P PRN 06/22 0400 AC 06/23 PO 1907 Warfarin Sodium 5 MG COUMADIN 1700 ONE 06/23 1700 DC 06/23 PO 06/23 1701 1601 Last 24 Hrs of Lab/David Results Last 24 Hrs of Labs/Mics: Laboratory Tests 06/24/16 1140: Urinalysis LIGHT H, Urine Color YEL, Urine Clarity CLEAR, Urine pH 6.0, Ur Specific [place] 1.025, Urine Protein 30 H, Urine Ketones 15 H, Urine Nitrite NEG, Urine Bilirubin NEG, Urine Urobilinogen 0.2, Ur Leukocyte Esterase NEG, Ur Microscopic SEDIMENT EXAMINED, Urine RBC 3-5, Urine WBC 5-10 H, Ur Epithelial Cells FEW, Urine Bacteria RARE H, Urine Mucus FEW, Urine Hemoglobin TRACE- INTACT, Urine Glucose NEG 06/24/16 0730: PT 33.2 H, INR 3.20 H 06/24/16 0700: Anion Gap 6, Estimated GFR > 60, BUN/Creatinine Ratio 20.0, CBC w Diff NO MAN DIFF REQ, RBC 3.48 L, MCV 92.8, MCH 30.1, RDW 13.6, MPV 9.4, Gran % 72.0, Lymphocytes % 15.8 L, Monocytes % 9.3, Eosinophils % 2.4, Basophils % 0.5, Absolute Granulocytes 7.8 H, Absolute Lymphocytes 1.7, Absolute Monocytes 1.0 H, Absolute Eosinophils 0.3, Absolute Basophils 0, PUBS MCHC 32.5 L Microbiology 06/24 1110 URINE ROUT: Urine Culture - CAN Cancelled: Cancelled via OE: Per MD Decision Assessment/Plan Assessment: Ms. Ferro is a 75 year old female with PMH epilepsy/simple partial seizures, osteoporosis, hypothyroidism, unspecified dementia without behavioral disturbances, major depressive disorder, essential hypertension, COPD on 2 L nasal cannula continuously and muscle weakness who presented for evaluated status post mechanical fall resulting in right hip intertrochanteric fracture. Hip XRay was significant for an acute comminuted intertrochanteric fracture of the right hip with slight varus and posterior angulation at the site of fracture. CXR showed ill-defined opacity within the right lower lobe that may represent a manifestation of subsegmental atelectasis or consolidative disease. 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 Mild global parenchymal loss. No evidence of acute cranial hemorrhage. Patient is admitted to the general medicine floor and the following is the management: 1. Acute comminuted right hip intertrochanteric fracture * Postoperative day 2 , Status post reduction and fixation of the right hip fracture with dynamic hip screw is in position and adequate alignment. 2. Acute hyponatremia Mild acute hyponatremia, currently resolving. Most likely secondary to IV fluid hydration with D5 half normal saline since yesterday. Will discontinue IV hydration and encourage oral fluid intake. Will trend BEP tomorrow. 3. DVT prophylaxis In the setting of right hip ORIF, and anticipated immobilization patient is a increased risk for DVT and therefore warrants prophylaxis. However patient's INR today supratherapeutic above 3.2, will hold off Coumadin today. 3. History of epilepsy * Dilantin level noted to be low to 4.2 * Dilantin 130 mg PO at bedtime, Dilantin 100 mg PO daily * Keppra 500 mg PO BID 5. Dementia without behavioral disturbance * Will restart donepezil and Aricept 6. COPD * No acute exacerbation currently * Patient currently at home O2 via NC (2 L) * Continue supplemental O2 as needed * Monitor respiratory status closely * TRC nebs * Incentive spirometry for atelectatic areas 7. Essential HTN * Vital signs Q shift * Continue amlodipine 10 mg PO daily and metoprolol 8. Major depressive disorder * Will restart Lexapro today Disposition: Possible discharge tomorrow awaiting bed placement. FULL CODE Problem List: 1. Fracture of right hip Pain Ratin Pain Location: right hip Pain Goal: Remain pain free Pain Plan: per pain pain pathway Tomorrow's Labs & Rationales: BEP-Trending hyponatremia CBC: POD#2 Consulting Request: Consulting Specialty: Orthopedics KARINA RUSSELL,DINA 06/24/16 1211: Attending MD Review Statement Attending Statement Attending MD Statement: examined this patient, discuss w/resident/PA/FLEET COORDINATOR, agreed w/resident/PA/FLEET COORDINATOR, reviewed EMR data (avail), discussed with nursing, discussed with case mgmt, amended to note Attending Assessment/Plan: Patient seen and examined, she has significant dementia therefore not able to communicate well. She denies any complaints. She'll low-grade temp spike last night but his morning she is afebrile. Vital Signs Date Time Temp Pulse Resp B/P Pulse O2 O2 Flow FiO2 Ox Delivery Rate 06/24 1051 85 138/68 06/24 1050 85 138/68 06/24 0655 98.8 86 18 144/70 96 Nasal Cannula 06/24 0000 80 06/24 0000 Nasal 2.0L Cannula 06/23 2240 99.2 06/23 2240 99.2 06/23 2142 110 140/80 06/23 2141 100.3 06/235 100.3 110 18 140/80 95 Nasal 2.0L Cannula 06/23 1600 Nasal 2.0L Cannula 06/23 1450 97.2 89 19 120/70 98 06/23 1352 Room Air Room Air on exam; awake, nad. cv; s1,s2, rrr resp; clear b/l abd; soft, nt, bs+ ext; no edema ms: + dressing on right hip. Laboratory Tests 06/24 06/24 0730 0700 Chemistry Sodium (137 - 145 mmol/L) 136 L Potassium (3.5 - 5.1 mmol/L) 5.0 Chloride (98 - 107 mmol/L) 100 Carbon Dioxide (22 - 30 mmol/L) 29 Anion Gap (5 - 16) 6 BUN (7 - 17 mg/dL) 12 Creatinine (0.5 - 1.0 mg/dL) 0.6 Estimated GFR (>60 ml/min) > 60 BUN/Creatinine Ratio (7 - 25 %) 20.0 Coagulation PT (9.4 - 12.5 SEC) 33.2 H INR (0.90 - 1.19) 3.20 H Hematology CBC w Diff NO MAN DIFF REQ WBC (4.8 - 10.8 /CUMM) 10.8 RBC (4.20 - 5.40 /CUMM) 3.48 L Hgb (12.0 - 16.0 G/DL) 10.5 L Hct (37 - 47 %) 32.3 L MCV (81.0 - 99.0 FL) 92.8 MCH (27.0 - 31.0 PG) 30.1 RDW (11.5 - 14.5 %) 13.6 Plt Count (130 - 400 /CUMM) 162 MPV (7.4 - 10.4 FL) 9.4 Gran % (42.2 - 75.2 %) 72.0 Lymphocytes % (20.5 - 51.1 %) 15.8 L Monocytes % (1.7 - 9.3 %) 9.3 Eosinophils % (0 - 5 %) 2.4 Basophils % (0.0 - 2.0 %) 0.5 Absolute Granulocytes (1.4 - 6.5 /CUMM) 7.8 H Absolute Lymphocytes (1.2 - 3.4 /CUMM) 1.7 Absolute Monocytes (0.10 - 0.60 /CUMM) 1.0 H Absolute Eosinophils (0.0 - 0.7 /CUMM) 0.3 Absolute Basophils (0.0 - 0.2 /CUMM) 0 PUBS MCHC (33.0 - 37.0 G/DL) 32.5 L A/P; 75 y/o F with pmh sig for epilepsy/simple partial seizures, osteoporosis, hypothyroidism, unspecified dementia without behavioral disturbances, major depressive disorder, essential hypertension, COPD on 2 L/ch resp failure, [facility] and found to have acute comminuted intertrochanteric fracture of the right hip. Status post right hip ORIF postop day #2 today. Low-grade temp last night which could be related to atelectasis. We will check a urinalysis to make sure there is no evidence of UTI as patient still has a Matthews catheter. Matthews should be removed. Per surgery, patient can work with PT with nonweightbearing at the right lower extremity. INR is supratherapeutic today, hold Coumadin and check INR in the morning. H&H per the much stable. Pain management adequate. Patient will likely discharge to rehabilitation tomorrow.
--- NOTE | 2016-06-24 11:16 | Operative Report ---
Operative/Inv Procedure Report Surgery Date: 06/22/16 Name of Procedure: ORIF right intertrochanteric hip fracture Pre-Operative Diagnosis: Right base of neck/intertrochanteric hip fracture Post-Operative Diagnosis: Same Estimated Blood Loss: 50ml to 100ml Surgeon/Subway Train Driver: Wong Medina MD Anesthesia: block Implants: Lisa [place] 135, 3 hole sideplate Drains: None Specimens: None Complications: None Condition: Stable Operative Indication: Patient is a 75-year-old woman with history of dementia who fell at nursing facility injuring her right hip. She was found to have a displaced and comminuted intertrochanteric/base of neck hip fracture. She was placed on the medical service for medical clearance. Recommendation for ORIF. Risks benefits and expectations were discussed with the patient's power of art critic and consent was obtained. These risks included but were not limited to persistent hip pain, need for subsequent surgery, infection, malunion, nonunion, anesthesia risks, DVT. Operative/Procedure Note Note: Patient was brought to the operating room and transferred to the operating table. Once under appropriate anesthesia the right lower extremity was prepped and draped in standard fashion. Preoperative IV antibiotic's were given prophylactically Preoperative fluoroscopic images were done to verify reduction. A standard lateral incision was made based over the right hip. Incision was taken down sharply to the underlying fascia. The fascia was incised in line with the skin incision. The vastus lateralis was reflected anteriorly and incision was made at the lower posterior aspect of the vastus lateralis and subperiosteal dissection was made exposing the lateral aspect the proximal femur. These a guidewire for the [place] system and drilled up into the femoral head. I visualized the position of the guide pin on both AP and lateral planes. I was satisfied with position. I then measured it to 90 mm. Reaming followed. I then placed the definitive 90 mm screw across the lateral aspect of the femur across the fracture site into the femoral head. I was satisfied with position. I then placed the 135 [address] It was impacted onto the bone and then 3 bicortical screws were placed in standard fashion. Intraoperative fluoroscopic images were obtained confirming reduction of the fracture and stability of the fracture as well as position of the hardware. Copious irrigation of the hip followed. The vastus lateralis was repaired anatomically using a running 0 Vicryl suture. Fascia was closed with interrupted #1 Vicryl sutures followed by 2 level closure of the subcutaneous tissue with 2-0 Vicryl. Skin was closed with alysa. A probe progestins were applied and patient was awakened and taken the recovery room in good condition. No intraoperative complications. Blood loss was 50 mL Discharge Disposition: PACU
--- NOTE | 2016-06-24 14:41 | NUR ---
1400- NOTIFIED DR. RYDER LEMOS THAT PT HAD LITTLE INTAKE OF FOOD TODAY. DRINKS GINGERALE, WATER AND JUICE WITH ENCOURAGEMENT BUT REFUSES TO EAT MUCH FOOD. PER MD, HE IS AWARE PT WITHOUT IV ACCESS AT THIS TIME.
[2016-06-24 15:01] VITALS: BP 140/80
--- NOTE | 2016-06-24 21:26 | NUR ---
PT'S PABLO WAS REMOVED AT 1145 TODAY PER REPORT FROM DAY NURSE. OF 1999, PT ONLY VOIDED X1 FOR A TOTAL OF 20CC DARK YELLOW URINE. BLADDER SCANNED FOR 0ML. PT HAS VERY POOR PO INTAKE, ENCOURAGEMENT GIVEN. LINE MAINTENANCE SUPERVISOR MADE AWARE, NO NEW ORDER AT THIS TIME WILL CONTINUE TO MONITOR.
[2016-06-24 22:48] VITALS: BP 112/58
[2016-06-24] MEDS ORDERED: TYLENOL325 M1 PO (22:55)
--- NOTE | 2016-06-24 23:00 | Patient Discharge Instructions ---
Discharge Instructions General Discharge Information You were seen/treated for: RIGHT HIP FRACTURE REQUIRING SURGERY Special Instructions: Surgical clips should be removed on postop day #15 07/07/16 and incision reinforced with Steri-Strips Please follow up with Dr Mayer in approximately 3 weeks Please follow up with your primary care in 1 week Diet Recommended Diet: Regular Activity Full Activity/No Limits: No (NON WEIGHT BEARING FOR NOW) Acute Coronary Syndrome Inclusion Criteria At DC or during hospital stay patient has or had the following: ACS DIAGNOSIS No Discharge Core Measures Meds if any: Prescribed or Continued at Discharge Meds if any: NOT Prescribed or Continued at Discharge Congestive Heart Failure Inclusion Criteria At DC or during hospital stay patient has or had the following: CHF DIAGNOSIS No Discharge Core Measures Meds if any: Prescribed or Continued at Discharge Meds if any: NOT Prescribed or Continued at Discharge Cerebrovascular accident Inclusion Criteria At DC or during hospital stay patient has or had the following: CVA/TIA Diagnosis No Discharge Core Measures Meds if any: Prescribed or Continued at Discharge Meds if any: NOT Prescribed or Continued at Discharge Venous thromboembolism Inclusion Criteria VTE Diagnosis No VTE Type NONE VTE Confirmed by (Test) NONE Discharge Core Measures - Per Current guidelines, there needs to be overlap - treatment for the first 5 days of Warfarin therapy. - If discharged on Warfarin prior to 5 days of - overlap therapy, the patient will need to be - assessed for post discharge needs including - *Post discharge parental anticoagulation - *Warfarin and/or parental anticoagulation education - *Follow up date to check INR post discharge At least 5 days overlap therapy as Inpatient No Meds if any: Prescribed or Continued at Discharge Note: Overlap Therapy is Warfarin and Anticoagulant Meds if any: NOT Prescribed or Continued at Discharge
[2016-06-25 06:43] VITALS: BP 126/54
[2016-06-25] MEDS ORDERED: COUMADIN2 M1 PO (07:57)
--- NOTE | 2016-06-25 08:08 | PN- Housestaff ---
CANELO RUSSELL,RYDER 06/25/16 0808: Subjective Follow-up For: Right ORIF Subjective: Ration is seen and examined at bedside. Patient continues to be disoriented but is alert. Nursing reports that patient's intake has improved today in the morning. No acute overnight event reported occluding fevers, chest pain, palpitation, nausea, vomiting, abdominal pain or dysuria. Review of Systems Constitutional: Reports: no symptoms. Objective Last 24 Hrs of Vital Signs/I&O Vital Signs Date Time Temp Pulse Resp B/P Pulse O2 O2 Flow FiO2 Ox Delivery Rate 06/25 0956 80 110/60 06/25 0954 80 110/60 06/25 0643 98.8 90 18 126/54 99 Nasal Cannula 06/25 0000 Nasal 2.0L Cannula 06/24 2248 99.9 86 20 112/58 99 Room Air 06/24 1600 Nasal 2.0L Cannula 06/24 1501 98.2 85 19 140/80 96 Intake & Output 06/25 1600 06/25 0800 06/25 0000 Intake Total 120 Output Total 50 20 Balance 70 -20 Intake, Oral 120 Number 0 Bowel Movements Output, Urine 50 20 Physical Exam General Appearance: Alert Assessment/Plan Assessment: Ms. Frero is a 75 year old female with PMH epilepsy/simple partial seizures, osteoporosis, hypothyroidism, unspecified dementia without behavioral disturbances, major depressive disorder, essential hypertension, COPD on 2 L nasal cannula continuously and muscle weakness who presented for evaluated status post mechanical fall resulting in right hip intertrochanteric fracture. Hip XRay was significant for an acute comminuted intertrochanteric fracture of the right hip with slight varus and posterior angulation at the site of fracture. CXR showed ill-defined opacity within the right lower lobe that may represent a manifestation of subsegmental atelectasis or consolidative disease. 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 Mild global parenchymal loss. No evidence of acute cranial hemorrhage. Patient is admitted to the general medicine floor and the following is the management: 1. Acute comminuted right hip intertrochanteric fracture * Postoperative day 3, Status post reduction and fixation of the right hip fracture with dynamic hip screw is in position and adequate alignment. 2. Acute hyponatremia Mild acute hyponatremia, currently resolving. Most likely secondary to IV fluid hydration with D5 half normal saline since yesterday. Will discontinue IV hydration and encourage oral fluid intake. Will trend BEP tomorrow. 3. DVT prophylaxis In the setting of right hip ORIF, and anticipated immobilization patient is a increased risk for DVT and therefore warrants prophylaxis. Will dose Coumadin based on INR level today previous days patient has not receive any Coumadin due to supratherapeutic INR. Patient is a hard stick and nursing staff has had multiple tries an attempt to draw blood, will try again today to obtain INR level. 3. History of epilepsy * Dilantin level noted to be low to 4.2 * Dilantin 130 mg PO at bedtime, Dilantin 100 mg PO daily * Keppra 500 mg PO BID 5. Dementia without behavioral disturbance * Will restart donepezil and Aricept 6. COPD * No acute exacerbation currently * Patient currently at home O2 via NC (2 L) * Continue supplemental O2 as needed * Monitor respiratory status closely * TRC nebs * Incentive spirometry for atelectatic areas 7. Essential HTN * Vital signs Q shift * Continue amlodipine 10 mg PO daily and metoprolol 8. Major depressive disorder * Will restart Lexapro today Disposition: Patient is medically stable for discharge, however placement is being worked on currently with issues regarding whether patient will go to [facility] or the previous acute rehabilitation center. FULL CODE Problem List: 1. Fracture of right hip Pain Ratin Pain Location: Right hip Pain Goal: Pain 4 or less Pain Plan: Per pain pathway Tomorrow's Labs & Rationales: CBC-postop INR-Coumadin dose Consulting Request: Consulting Specialty: Orthopedics KARINA RUSSELL,[place] 06/25/16 1149: Attending MD Review Statement Attending Statement Attending MD Statement: examined this patient, discuss w/resident/PA/ELEMENTARY SUBSTITUTE TEACHER, agreed w/resident/PA/ELEMENTARY SUBSTITUTE TEACHER, reviewed EMR data (avail), discussed with nursing, discussed with case mgmt, amended to note Attending Assessment/Plan: Patient seen and examined, she is unable to communicate secondary to having advanced dementia. Her by mouth intake remains poor. Vital Signs Date Time Temp Pulse Resp B/P Pulse O2 O2 Flow FiO2 Ox Delivery Rate 06/25 0956 80 110/60 06/25 0954 80 110/60 06/25 0643 98.8 90 18 126/54 99 Nasal Cannula 06/25 0000 Nasal 2.0L Cannula 06/24 2248 99.9 86 20 112/58 99 Room Air 06/24 1600 Nasal 2.0L Cannula 06/24 1501 98.2 85 19 140/80 96 on exam; awake, pleasantly confused, nad. cv; s1,s2, rrr resp; clear abd; soft, nt, bs+ ext; no edema. ms: the right hip dressing is clean. labs are pending. A/P; 75 y/o F with pmh sig for epilepsy/simple partial seizures, osteoporosis, hypothyroidism, unspecified dementia without behavioral disturbances, major depressive disorder, essential hypertension, COPD on 2 L/ch resp failure, [facility] found to have acute comminuted intertrochanteric fracture of the right hip. Status post right hip ORIF postop day #3 today. Oral intake remains poor. Nutrition consult. Patient needs assistance with feeding as she cannot feed herself secondary to having advanced dementia. Pain control seems to be well. INR this morning is pending. Yesterday INR was supratherapeutic if her Coumadin was held. We need to check today's INR to adjust the dose of Coumadin. In terms of her disposition planning, there is some question in terms of where the patient will be going. Discussed with the trimming caser. We will encourage by mouth intake and if you intake is better by tomorrow she'll be able to [facility]. Left a msg for karla's nephew to call back to discuss he nutrition status.
--- NOTE | 2016-06-25 10:43 | NUR ---
Consult received for poor PO intake. Please refer to nutrition eval done yesterday, RD following.
[2016-06-25 14:55] VITALS: BP 118/54
--- NOTE | 2016-06-25 15:05 | NUR ---
PT LABS NOT SRAWN. SEVERAL ATTEMPTS WERE MADE TO STICK PATIENT BUT UNSUCCESSFUL. DR. RYDER LEMOS AWARE. ENCOURAGING ORAL HYDRATION.
--- NOTE | 2016-06-25 18:25 | NUR ---
PT YELLING OUT "OH GOD, OH LORD", PT HOLDING ON TO RIGHT HIP. PULLED ABD PAD DRESSING OFF. BOBBI INTACT, WELL APPROXIMATED. PT STATING THAT SHE NEEDS TO HAVE A BOWEL MOVEMENT, PLACED ON BED PATHAK, 2 SMALL HARD BROWN PIECES OF STOOL IN PATHAK. SMALL AMOUNT OF URINE WELL. PT GIVEN 2MG SC MORPHINE PER EMAR. WORKED WELL, PT MORE CALM NOT SCREAMING OUT IN PAIN. REFUSING TO EAT DINNER. BED ALARM IN PLACE. +CMS. PT ABLE TO WIGGLE TOES ON RIGHT LEG. PT CONSTANTLY NEEDING TO BE REMINDED ABOUT WHERE SHE IS AND WHY SHE IS HERE. HX DEMENTIA. REORIENTED MULTIPLE TIMES. BED ALARM IN PLACE. WILL MONITOR.
[2016-06-25 22:40] VITALS: BP 136/60
[2016-06-26 06:42] VITALS: BP 112/50
--- NOTE | 2016-06-26 07:40 | PN- Housestaff ---
CANELO RUSSELL,[facility] 06/26/16 0740: Subjective Follow-up For: right hip orif Subjective: Pt seen and examined. Still demented and and not oriented. Nurse reports better nutritional intake. No acute o/n event reported. Review of Systems Constitutional: Reports: no symptoms. Objective Last 24 Hrs of Vital Signs/I&O ... Physical Exam General Appearance: Alert Skin: non purulent incisonal area at right hip Cardiovascular: Regular Rate, Normal S1, Normal S2, No Murmurs Lungs: Clear to Auscultation, Normal Air Movement Abdomen: Normal Bowel Sounds, Soft, No Tenderness, No Hepatospenomegaly Neurological: Normal Tone, Sensation Intact Extremities: No Clubbing, No Cyanosis, No Edema, Normal Pulses Assessment/Plan Assessment: Ms. Ferro is a 75 year old female with PMH epilepsy/simple partial seizures, osteoporosis, hypothyroidism, unspecified dementia without behavioral disturbances, major depressive disorder, essential hypertension, COPD on 2 L nasal cannula continuously and muscle weakness who presented for evaluated status post mechanical fall resulting in right hip intertrochanteric fracture. Hip XRay was significant for an acute comminuted intertrochanteric fracture of the right hip with slight varus and posterior angulation at the site of fracture. CXR showed ill-defined opacity within the right lower lobe that may represent a manifestation of subsegmental atelectasis or consolidative disease. 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 Mild global parenchymal loss. No evidence of acute cranial hemorrhage. Patient is admitted to the general medicine floor and the following is the management: 1. Acute comminuted right hip intertrochanteric fracture * Postoperative day 4 Status post reduction and fixation of the right hip fracture with dynamic hip screw is in position and adequate alignment. 2. Acute hyponatremia Mild acute hyponatremia, currently resolving. Most likely secondary to IV fluid hydration with D5 half normal saline since yesterday. Will continue to encourage oral fluid intake. 3. DVT prophylaxis Pt will need 4-6 weeks coumadin dosing. Teto discharge with instruction 3. History of epilepsy * Dilantin level noted to be low to 4.2 * Dilantin 130 mg PO at bedtime, Dilantin 100 mg PO daily * Keppra 500 mg PO BID 5. Dementia without behavioral disturbance * Will restart donepezil and Aricept 6. COPD * No acute exacerbation currently * Patient currently at home O2 via NC (2 L) * Continue supplemental O2 as needed * Monitor respiratory status closely * TRC nebs * Incentive spirometry for atelectatic areas 7. Essential HTN * Vital signs Q shift * Continue amlodipine 10 mg PO daily and metoprolol 8. Major depressive disorder * continue Lexapro Disposition: Patient is medically stable for discharge. FULL CODE Problem List: 1. Fracture of right hip Pain Ratin Pain Location: right hip Pain Goal: Remain pain free Pain Plan: per pain pathway Tomorrow's Labs & Rationales: rosana-discharge Consulting Request: Consulting Specialty: Orthopedics KARINA RUSSELL,DINA 06/26/16 1154: Attending MD Review Statement Attending Statement Attending MD Statement: examined this patient, discuss w/resident/PA/COSTUME DESIGNER, agreed w/resident/PA/COSTUME DESIGNER, reviewed EMR data (avail), discussed with nursing, discussed with case mgmt, amended to note Attending Assessment/Plan: Patient seen and examined, she is not able to medicate was secondary to having advanced dementia. Her by mouth intake has improved some. She has a bed available at rehabilitation today. Her INR is therapeutic. She is medically stable for discharge to rehabilitation. She will follow-up with Dr. Perea an outpatient for the staple removal.
[2016-06-26 09:16] LABS: PT 29.8 SEC (9.4-12.5)
[2016-06-26 14:32] VITALS: BP 102/52
[2016-06-27] MEDS ORDERED: NAMENDA10 M2 PO (11:26)
--- NOTE | 2016-06-30 08:25 | Discharge Summary ---
Hospital Course Course Consulting Request: Consulting Specialty: Orthopedics Allergies: Coded Allergies: lisinopril (Mild, UNKNOWN 06/21/16) Discharge Instructions General Discharge Information Code Status: Full Code Medications at Discharge Discharge Medications: Continue taking these medications: Phenytoin (Dilantin) 100 MG CAPSULE 130 Milligram ORAL AT BEDTIME Comments: Last Taken: 06/25/16 Time: 2200 Levetiracetam (Keppra) 500 MG TABLET 500 Milligram ORAL TWICE DAILY Comments: Last Taken: 06/26/16 Time: 1000 Escitalopram Oxalate (Lexapro) 10 MG TABLET 15 Milligram ORAL DAILY Comments: Last Taken: 06/26/16 Time: 1000 Metoprolol Tartrate (Metoprolol Tartrate) 25 MG TABLET 12.5 Milligram ORAL TWICE DAILY Famotidine (Pepcid) 20 MG TABLET 20 Milligram ORAL 0430 Comments: NOT GIVEN Amlodipine Besylate (Amlodipine Besylate) 10 MG TABLET 10 Milligram ORAL DAILY Comments: Last Taken: 06/25/16 Time: 1000 Alendronate Sodium (Alendronate Sodium) 70 MG TABLET 70 Milligram ORAL EVERY WEDNESDAY Comments: Last Taken: 06/25/16 Time: 1000 Donepezil HCl (Donepezil HCl) 5 MG TABLET 5 Milligram ORAL Every night Comments: Last Taken: 06/26/16 Time: 1000 Sennosides (Senna) 8.6 MG TABLET 8.6 Milligram ORAL DAILY Comments: Last Taken: 06/25/16 Time: 2200 Travoprost (Travatan Z) 0.004 % DROPS 1 DROP Both Eyes DAILY Comments: Last Taken: 06/25/16 Time: 1000 Fluticasone/Salmeterol (Advair 250-50 Diskus) 250 MCG-50 MCG/DOSE BLST.W.DEV 2 Puff Inhale through mouth TWICE DAILY Comments: NOT GIVEN Phenytoin (Dilantin) 100 MG CAPSULE 1 Capsule ORAL DAILY Comments: Last Taken: 06/26/16 Time: 1000 Polyethylene Glycol 3350 (Miralax) 17 GRAM POWD.PACK 1 Packet ORAL DAILY as needed for CONSTIPATION Instructions: dissolve in water Comments: Last Taken: 06/26/16 Time: 1000 Trazodone HCl (Trazodone HCl) 50 MG TABLET 0.5 Tablet ORAL EVERY SIX HOURS NEEDED as needed for AGITATION Comments: Last Taken: 06/25/16 Time: 2200 Umeclidinium [place] (Incruse Ellipta) 62.5 MCG/ACTUATION BLST.W.DEV 1 PUFF Inhale through mouth DAILY Comments: NOT TAKEN Start taking the following new medications: Acetaminophen (Tylenol) 325 MG TABLET 650 Milligram ORAL EVERY SIX HOURS NEEDED as needed for PAIN SCALE 1-3 ( MILD) Qty = 30 No Refills Warfarin Sodium (Coumadin) 2 MG TABLET 1 Tablet ORAL QD PER INR as needed for DVT PPX Days = 42 No Refills Instructions: PLEASE ADJUST DOSE BASED ON INR (DVT PPX). PT REQUIRES 6 WEEKS OF THERAPY.
== END 2016-06-26 14:47 | DRG 481 ==
LOC: ENRESERVDT → ENRESERVTM → ERH 23:04 → ENPENDDIS 06-22 00:52 → ERHI 06-22 00:52 → 2NA 06-22 00:52
PROVIDERS: Internal Medicine; Physician Assistant; Physician Assistant Surgical; Student in an Organized Health Care Education/Training Program; ADMIT Internal Medicine
PROC: 0QS604Z Reposition Right Upper Femur with Internal Fixation Device, Open Approach (ICD-10-PCS; principal; 2016-06-22)
DX: S72.141A Displaced intertrochanteric fracture of right femur, initial encounter for closed fracture (principal); J96.10 Chronic respiratory failure, unspecified whether with hypoxia or hypercapnia; R64 Cachexia; J44.9 Chronic obstructive pulmonary disease, unspecified; Z99.81 Dependence on supplemental oxygen; F03.90 Unspecified dementia, unspecified severity, without behavioral disturbance, psychotic disturbance, mood disturbance, and anxiety; E87.1 Hypo-osmolality and hyponatremia; G40.909 Epilepsy, unspecified, not intractable, without status epilepticus; D62 Acute posthemorrhagic anemia; Z68.1 Body mass index [BMI] 19.9 or less, adult; I10 Essential (primary) hypertension; E03.9 Hypothyroidism, unspecified; M81.0 Age-related osteoporosis without current pathological fracture; F32.9 Major depressive disorder, single episode, unspecified; F17.210 Nicotine dependence, cigarettes, uncomplicated; E87.6 Hypokalemia; W19.XXXA Unspecified fall, initial encounter; Y92.129 Unspecified place in nursing home as the place of occurrence of the external cause
CPT/HCPCS: 2NAP; 2NASP; 36415; 73502-RT; 81001; 82436; 87086; 93005; 93010; 93306; 97112-GO; 97161-GP; 97530-GO; C1713; J0131; J0690; J2405; J3490; J7042

== ENCOUNTER 2016-06-27 11:05 | Emergency (ER) | payer OTHER, MEDICARE ==
[~2016-06-27] VITALS: Ht 152.4 cm; Wt 36.3 kg
[~2016-06-27 11:05] MED LIST: ADVAIR 250-501 EACH INH; ALENDRONATE SOD70 M2 PO; AMLODIPINE BESY10 M1 PO; COUMADIN2 M1 PO; DILANTIN100 M1 PO; DONEPEZIL HCL5 MG PO; INCRUSE ELLI62.5 MCG INH; KEPPRA500 M1 PO; LEXAPRO10 M1 PO; LEXAPRO5 M1 PO; METOPROLOL TART25 M1 PO; MIRALAX17 G1 PO; PEPCID20 M1 PO; SENNA8.6 M3 PO; TRAVATAN Z5 ML OU; TRAZODONE HCL50 M1 PO; TYLENOL325 M1 PO
[2016-06-27 11:13] VITALS: BP 178/86
--- NOTE | 2016-06-27 11:19 | ED MVC/FALL/TRAUMA COMPLAINT ---
History of Present Illness General Chief Complaint: Fall Stated Complaint: BIBA FOR EVAL OF FALL/HIP PAIN Source: patient, old records, W10 Exam Limitations: dementia, poor historian Vital Signs & Intake/Output Vital Signs & Intake/Output Vital Signs Date Time Temp Pulse Resp B/P Pulse O2 O2 Flow FiO2 Ox Delivery Rate 06/27 1126 93 06/27 1113 98.3 97 20 178/86 97 Room Air Allergies Coded Allergies: lisinopril (Mild, UNKNOWN 06/21/16) Reconcile Medications Acetaminophen (Tylenol) 325 MG TABLET 650 MG PO Q6P PRN PAIN SCALE 1-3 (MILD) Alendronate Sodium 70 MG TABLET 70 MG PO QTHURS BONE STRENGTH (Reported) Amlodipine Besylate 10 MG TABLET 10 MG PO DAILY HIGH BLOOD PRESSURE (Reported ) Donepezil HCl 5 MG TABLET 5 MG PO QPM DEPRESSION (Reported) Escitalopram Oxalate (Lexapro) 10 MG TABLET 15 MG PO DAILY DEPRESSION ( Reported) Famotidine (Pepcid) 20 MG TABLET 20 MG PO 0430 STOMACH HEALTH (Reported) Fluticasone/Salmeterol (Advair 250-50 Diskus) 250 MCG-50 MCG/DOSE BLST.W.DEV 2 PUF INH BID SHORTNESS OF BREATH (Reported) Levetiracetam (Keppra) 500 MG TABLET 500 MG PO BID SEIZURES (Reported) Memantine HCl (Namenda) 10 MG TABLET 1 TAB PO QPM DEMENTIA (Reported) Metoprolol Tartrate 25 MG TABLET 12.5 MG PO BID HIGH BLOOD PRESSURE (Reported ) Phenytoin (Dilantin) 100 MG CAPSULE 130 MG PO AT BEDTIME SEIZURES (Reported) Phenytoin (Dilantin) 100 MG CAPSULE 1 CAP PO DAILY SEIZURES (Reported) Polyethylene Glycol 3350 (Miralax) 17 GRAM POWD.PACK 1 PAC PO DAILY PRN CONSTIPATION (Reported) dissolve in water Sennosides (Senna) 8.6 MG TABLET 8.6 MG PO DAILY STOOL SOFTENER (Reported) Travoprost (Travatan Z) 0.004 % DROPS 1 DROP OU DAILY EYE PROBLEMS (Reported) Trazodone HCl 50 MG TABLET 0.5 TAB PO Q6P PRN AGITATION (Reported) Umeclidinium [place] (Incruse Ellipta) 62.5 MCG/ACTUATION BLST.W.DEV 1 PUFF INH DAILY LUNG (Reported) Warfarin Sodium (Coumadin) 2 MG TABLET 1 TAB PO QD PER INR PRN DVT PPX PLEASE ADJUST DOSE BASED ON INR (DVT PPX). PT REQUIRES 6 WEEKS OF THERAPY. Triage Note: PT BIBA FROM [facility] FOR FALL. PER [facility], PT GOT OUT OF BED UNASSISTED AND FELL. PT IS ON COUMADIN AND PER EMS, ROOMMATE SAID SHE TOHOUGHT PT HIT HER HEAD. PT IS ON COUMADIN. PT HAS HX OF DEMENTIA AND PER EMS HAS A RIGHT HIP FX FROM RECENT FALL. Triage Nurses Notes Reviewed? yes HPI: 75-year-old female arrived by ambulance to room Hsieh for evaluation of a fall. Patient has a history of frequent falls and was admitted last week with a fall which resulted in a right hip fracture. Apparently this morning she fell out of bed while trying to get up unassisted. She does remember the event despite history of seizures in mild dementia. She reports pain to her right hip but she denies any neck head back chest or abdominal pain. She is able to move all her extremities except her right hip with full range of motion. She is alert and oriented to person and place. On Coumadin, INR checked this morning 2.4 lytes stable also. (JAM CLARK APRN) Past History Travel History Traveled to Thu past 21 day No Medical History Any Pertinent Medical History? 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 No (JAM CLARK APRN) Review of Systems Review of Systems Constitutional: Reports: no symptoms. Eyes: Reports: no symptoms. Ears, Nose, Throat, Mouth: Reports: no symptoms. Respiratory: Reports: no symptoms. Cardiovascular: Reports: no symptoms. Gastrointestinal/Abdominal: Reports: no symptoms. Genitourinary: Reports: no symptoms. Musculoskeletal: Reports: see HPI, joint pain. Skin: Reports: no symptoms. Neurological/Psychological: Reports: no symptoms. All Other Systems: Reviewed and Negative (JAM CLARK APRN) Physical Exam Physical Exam General Appearance: well developed/nourished, no apparent distress, alert, awake , comfortable Head: atraumatic, normal appearance Neck: normal inspection, supple, full range of motion, normal alignment Respiratory: normal breath sounds, chest non-tender, no respiratory distress Cardiovascular: regular rate/rhythm Gastrointestinal: normal bowel sounds, soft, non-tender Back: normal inspection, normal range of motion Extremities: evidence of injury (recent right hip surgery) Neurologic/Psych: no motor/sensory deficits, awake, alert, oriented x 3 Skin: intact, normal color, warm/dry Core Measures ACS in differential dx? No Severe Sepsis Present: No Septic Shock Present: No (JAM CLARK APRN) Progress Differential Diagnosis: ext injury, ICH, pelvis injury Plan of Care: Orders Procedure Date/time Status EKG 06/27 1110 Active Diagnostic Imaging: Viewed by Me: CT Scan. Discussed w/RAD: CT Scan. Initial ED EKG: normal sinus rhythm 79, bilateral atrial enlargement and nonspecific ST-T wave changes no change from previous Prior EKG: unchanged Comments: PATIENT: REBECCA CARDENAS PRESENT AGE: 75 PATIENT ACCOUNT NO: [id number] : 39 LOCATION: [facility] ORDERING PHYSICIAN: JAM CLARK APRN SERVICE DATE: 06/27/16-1121 EXAM TYPE: CAT - CT PELVIS WO IV CONTRAST EXAMINATION: CT PELVIS WITHOUT CONTRAST CLINICAL INFORMATION: 75-year-old woman with right hip fracture post internal fixation. COMPARISON: 06/22/2016 radiographs TECHNIQUE: Helical scanning was performed with submillimeter collimation through the pelvis. Sagittal and coronal multiplanar reconstructions were obtained. DLP: 958 mGy-cm FINDINGS: PELVIS: There is colonic diverticulosis. Severe atherosclerotic plaquing is seen throughout the aortoiliac vessels. Postoperative changes with edema are seen in the right proximal leg. OSSEOUS STRUCTURES: Insufficiency fracture. There are chronic fractures of the right superior and inferior pubic rami with irregular callus formation. There has been recent ORIF of a comminuted intertrochanteric right hip fracture. There is some persistent medial displacement of fracture fragments extending through the lesser trochanter. Alignment appears approximately anatomic. IMPRESSION: 1. Interval ORIF of a comminuted intertrochanteric right hip fracture. Alignment is approximately anatomic. 2. Age indeterminate, although probably subacute to chronic right sacral insufficiency fracture. 3. Chronic fractures of the right superior and inferior pubic rami. DICTATED BY: CHELO FLAHERTY MD DATE/TIME DICTATED:06/27/161154 STONECUTTER HAND:CHRISTIANA DATE/TIME TRANSCRIBED:06/27/161154 CONFIDENTIAL, DO NOT COPY WITHOUT APPROPRIATE AUTHORIZATION. <Electronically signed in Other Vendor System> SIGNED BY: CHELO FLAHERTY MD 06/27/16 1203 PATIENT: REBECCA CARDENAS PRESENT AGE: 75 PATIENT ACCOUNT NO: [id number] : 39 LOCATION: [facility] ORDERING PHYSICIAN: JAM CLARK APRN SERVICE DATE: 06/27/16 EXAM TYPE: CAT - CT CERV SPINE WO IV CONTRAST; CT HEAD WO IV CONTRAST EXAMINATION: CT HEAD WITHOUT CONTRAST CT CERVICAL SPINE WITHOUT CONTRAST CLINICAL INFORMATION: 75-year-old man with fall and head injury. Dementia. COMPARISON: 06/21/[address] TECHNIQUE: Imaging was performed from the skull base to vertex without intravenous administration of contrast. In addition, helical noncontrast CT imaging was acquired through the cervical spine and source images were reviewed along with axial reconstructions and sagittal and coronal MPRs. DLP: 827 mGy-cm FINDINGS: HEAD: A chronic infarct is again noted in the left inferior temporal lobe along with fairly extensive chronic microvascular ischemic changes. The ventricles and sulcal spaces are diffusely prominent due to chronic volume loss. No intracranial mass, hemorrhage, or midline shift is visualized. No extra-axial collections are identified. There is mild mucosal thickening in the left maxillary sinus and moderate opacification of left sided ethmoid air cells. The mastoid air cells are underpneumatized bilaterally, right greater than left. CERVICAL SPINE: There is no evidence of acute cervical spine fracture. Vertebral bodies remain normal in height. Degenerative endplate sclerosis, anterior marginal osteophyte formation, and moderate loss of normal disc space is noted at C3-C4, C4-C5, C5-C6, and C6-C7. The right lobe of the thyroid gland appears to be diffusely enlarged. There is atherosclerotic plaquing at both carotid bifurcations. There is severe centrilobular emphysema. IMPRESSION: 1. No acute intracranial pathology. 2. No CT evidence of acute cervical spine fracture or traumatic subluxation. DICTATED BY: CHELO FLAHERTY MD DATE/TIME DICTATED:06/27/161146 STONECUTTER HAND:CHRISTIANA DATE/TIME TRANSCRIBED:06/27/161146 CONFIDENTIAL, DO NOT COPY WITHOUT APPROPRIATE AUTHORIZATION. <Electronically signed in Other Vendor System> SIGNED BY: CHELO FLAHERTY MD 06/27/[address] christianson. No evidence of reinjured hip or new fractures. No head or neck injury. She will be discharged back to [facility]. (JAM CLARK APRN) Departure Departure Time of Disposition: 1336 Disposition: HOME OR SELF CARE Condition: Stable Clinical Impression Primary Impression: Accident due to mechanical fall without injury Qualifiers: Encounter type: initial encounter Qualified Code: W19.XXXA - Unspecified fall, initial encounter Secondary Impressions: Head injury Qualifiers: Encounter type: initial encounter Qualified Code: S09.90XA - Unspecified injury of head, initial encounter Referrals: CHAVO LYN MD (PCP/Family) Departure Forms: Customer Survey General Discharge Information (JAM CLARK APRN) PA/HARNESS BRUSHER Co-Sign Statement Statement: ED Attending supervision documentation- x I saw and evaluated the patient. I have also reviewed all the pertinent lab results and diagnostic results. I agree with the findings and the plan of care as documented in the PA's/HARNESS BRUSHER's documentation. [] I have reviewed the ED Record and agree with the PA's/HARNESS BRUSHER's documentation. [] Additions or exceptions (if any) to the PAs/HARNESS BRUSHER's note and plan are summarized below: [] (CRUZ CHRISTIANSON MD)
[2016-06-27] MEDS ORDERED: NAMENDA10 M2 PO (11:26)
--- NOTE | 2016-06-27 11:57 | CT SCAN REPORT ---
EXAMINATION: CT HEAD WITHOUT CONTRAST CT CERVICAL SPINE WITHOUT CONTRAST CLINICAL INFORMATION: 75-year-old man with fall and head injury. Dementia. COMPARISON: 06/21/[address] TECHNIQUE: Imaging was performed from the skull base to vertex without intravenous administration of contrast. In addition, helical noncontrast CT imaging was acquired through the cervical spine and source images were reviewed along with axial reconstructions and sagittal and coronal MPRs. DLP: 827 mGy-cm FINDINGS: HEAD: A chronic infarct is again noted in the left inferior temporal lobe along with fairly extensive chronic microvascular ischemic changes. The ventricles and sulcal spaces are diffusely prominent due to chronic volume loss. No intracranial mass, hemorrhage, or midline shift is visualized. No extra-axial collections are identified. There is mild mucosal thickening in the left maxillary sinus and moderate opacification of left sided ethmoid air cells. The mastoid air cells are underpneumatized bilaterally, right greater than left. CERVICAL SPINE: There is no evidence of acute cervical spine fracture. Vertebral bodies remain normal in height. Degenerative endplate sclerosis, anterior marginal osteophyte formation, and moderate loss of normal disc space is noted at C3-C4, C4-C5, C5-C6, and C6-C7. The right lobe of the thyroid gland appears to be diffusely enlarged. There is atherosclerotic plaquing at both carotid bifurcations. There is severe centrilobular emphysema. IMPRESSION: 1. No acute intracranial pathology. 2. No CT evidence of acute cervical spine fracture or traumatic subluxation.
--- NOTE | 2016-06-27 12:03 | CT SCAN REPORT ---
EXAMINATION: CT PELVIS WITHOUT CONTRAST CLINICAL INFORMATION: 75-year-old woman with right hip fracture post internal fixation. COMPARISON: 06/22/2016 radiographs TECHNIQUE: Helical scanning was performed with submillimeter collimation through the pelvis. Sagittal and coronal multiplanar reconstructions were obtained. DLP: 958 mGy-cm FINDINGS: PELVIS: There is colonic diverticulosis. Severe atherosclerotic plaquing is seen throughout the aortoiliac vessels. Postoperative changes with edema are seen in the right proximal leg. OSSEOUS STRUCTURES: Insufficiency fracture. There are chronic fractures of the right superior and inferior pubic rami with irregular callus formation. There has been recent ORIF of a comminuted intertrochanteric right hip fracture. There is some persistent medial displacement of fracture fragments extending through the lesser trochanter. Alignment appears approximately anatomic. IMPRESSION: 1. Interval ORIF of a comminuted intertrochanteric right hip fracture. Alignment is approximately anatomic. 2. Age indeterminate, although probably subacute to chronic right sacral insufficiency fracture. 3. Chronic fractures of the right superior and inferior pubic rami.
== END 2016-06-27 14:00 ==
LOC: ERH 11:05
DX: S09.90XA Unspecified injury of head, initial encounter (principal); Z79.01 Long term (current) use of anticoagulants; W06.XXXA Fall from bed, initial encounter; Y92.122 Bedroom in nursing home as the place of occurrence of the external cause; Y93.9 Activity, unspecified
CPT/HCPCS: 93005; 93010